=== PATIENT | male | born 1960 | race Caucasian/White ===

== ENCOUNTER 2016-11-19 20:21 | Inpatient (IN) | payer OTHER ==
[2016-11-19 21:02] VITALS: BMI 20.8
--- NOTE | 2016-11-19 21:19 | HP ---
CIWA Score - CIWA Score Nausea/Vomitin-Int. Nausea w/Dry Heave Muscle Tremors: 4-Moderate,w/Arms Extend Anxiety: 6 Agitation: 6 Paroxysmal Sweats: 3 Orientation: 0-Oriented Tacttile Disturbances: 0-None Auditory Disturbances: 2-Mild Harshness/Frighten Visual Disturbances: 2-Mild Sensitivity Headache: 2-Mild CIWA-Ar Total Score: 29 Admission ROS BHS - HPI Chief Complaint: WITHDRAWAL SX'S Allergies/Adverse Reactions: Allergies Allergy/AdvReac Type Severity Reaction Status Date / Time No Known Allergies Allergy Verified 11/19/16 20:58 History of Present Illness: 56 Y.O. MALE WITH ALCOHOLISM HERE FOR DETOX TXMENT. CLIENT IS PRESENTLY INTOXICATED WITH PERIODS OR RAMBLING AND AGITATION. BEHAVIOR EASILY REDIRECTED. HE IS A POOR HISTORIAN 2/2 TO THE INTOXICATION AND AGITATION. CLIENT IS KNOWN TO [facility]. LAST ADMIT 08/2016 Exam Limitations: No Limitations - Ebola screening Have you traveled outside of the country in the last 21 days: No (N) Have you had contact with anyone from an Ebola affected area: No Have you been sick,other than usual withdrawal symptoms: No Do you have a fever: No - Review of Systems Constitutional: Night Sweats EENT: reports: No Symptoms Reported Respiratory: reports: No Symptoms reported Cardiac: reports: No Symptoms Reported GI: reports: Nausea, Poor Appetite : reports: No Symptoms Reported Musculoskeletal: reports: Back Pain, Neck Pain Integumentary: reports: No Symptoms Reported Neuro: reports: No Symptoms reported Endocrine: reports: No Symptoms Reported Hematology: reports: Easy Bruising Psychiatric: reports: Agitated, Anxious, Depressed Other Systems: Reviewed and Negative Patient History - Patient Medical History Hx Asthma: No Hx Chronic Obstructive Pulmonary Disease (COPD): No Hx Cancer: No Hx Cardiac Disorders: No Hx Congestive Heart Failure: No Hx Hypertension: Yes Hx Hypercholesterolemia: Yes Hx Pacemaker: No HX Cerebrovascular Accident: Yes (X 2 IN 08/29 AND ? 10/29 WITH ? BLOOD CLOTS) Hx Seizures: No Hx Diabetes: No Hx Gastrointestinal Disorders: Yes (HAD PANCREATITIS X 1 IN 02/2016) Hx Liver Disease: No Hx Genitourinary Disorders: No Hx Sexually Transmitted Disorders: No Hx Renal Disease (ESRD): No Hx Thyroid Disease: No Hx Human Immunodeficiency Virus (HIV): No Hx Hepatitis C: No Hx Depression: Yes (AND ANXIETY) Hx Suicide Attempt: No Hx Bipolar Disorder: No Hx Schizophrenia: No - Patient Surgical History Past Surgical History: Yes Hx Neurologic Surgery: No Hx Cataract Extraction: No Hx Cardiac Surgery: No Hx Lung Surgery: No Hx Appendectomy: Yes (FOR RUPTURED APPENDIX IN 09/2015) Hx Cholecystectomy: No Hx Genitourinary Surgery: No Hx Section: No Hx Orthopedic Surgery: No Anesthesia Reaction: Yes - PPD History Previous Implant?: Yes Documented Results: Negative w/proof Implanted On Prior [facility] Admission?: Yes Date: 08/31/16 Results: 0MM PPD to be Administered?: No - Smoking Cessation Smoking history: Current every day smoker Have you smoked in the past 12 months: Yes Aproximately how many cigarettes per day: 30 Cigars Per Day: 0 Hx Chewing Tobacco Use: Yes Initiated information on smoking cessation: No 'Breaking Loose' booklet given: 11/19/16 - Substance & Tx. History Hx Alcohol Use: Yes Hx Substance Use: Yes Substance Use Type: Alcohol Hx Substance Use Treatment: Yes ([facility]) - Substances Abused Alcohol Route: Oral Frequency: Daily Amount used: BEER- 1 CASE' oz Age of first use: 14 Date of Last Use: 11/19/16 Family Disease History - Family Disease History Family Disease History: CA: Mother ( FROM MS AND BREAST CANCER), Other: Father (ETOH DEPENDENT AND ) Admission Physical Exam [facility] - Vital Signs Vital Signs: Vital Signs - 24 hr 11/19/16 20:44 Temperature 97.5 F L Pulse Rate 81 Respiratory 18 Rate Blood Pressure 118/79 - Physical General Appearance: Yes: Mild Distress, Intoxicated, Tremorous, Irritable HEENTM: Yes: Normocephalic, JERRI, Pharynx Normal Respiratory: Yes: Chest Non-Tender, Lungs Clear, Normal Breath Sounds, No Respiratory Distress, No Accessory Muscle Use Neck: Yes: No masses,lesions,Nodules, Trachea in good position Breast: Yes: Breast Exam Deferred Cardiology: Yes: Regular Rhythm, Regular Rate, S1, S2 Abdominal: Yes: Normal Bowel Sounds, Non Tender Genitourinary: Yes: Within Normal Limits Back: Yes: Normal Inspection Musculoskeletal: Yes: full range of Motion, Gait Steady, Other (HAS A CANE ALTHOUGH GAIT IS STEADY) Extremities: Yes: Normal Range of Motion, Non-Tender, Tremors Neurological: Yes: Fully Oriented, Alert, Motor Strength 5/5 Integumentary: Yes: Within Normal Limits Lymphatic: Yes: Within Normal Limits - Diagnostic (1) Alcohol dependence with uncomplicated withdrawal Current Visit: No Status: Acute (2) HTN (hypertension) Current Visit: No Status: Chronic Qualifiers: Hypertension type: essential hypertension Qualified Code(s): I10 - Essential (primary) hypertension (3) Hypercholesteremia Current Visit: No Status: Chronic (4) Nicotine dependence Current Visit: No Status: Chronic Qualifiers: Nicotine product type: cigarettes Substance use status: unspecified nicotine-induced disorder Qualified Code(s): F17.219 - Nicotine dependence, cigarettes, with unspecified nicotine-induced disorders Cleared for Admission [facility] - Detox or Rehab [facility] Level of Care: Medically Managed Detox Regimen/Protocol: Librium [facility] Breath Alcohol Content Breath Alcohol Content: 0.221 Urine Drug Screen - Results Drug Screen Negative: Yes
[2016-11-19] MEDS ORDERED: MAG HYDROX/AL HYDROX/SIMETH 30 ML UNIT-DOSE CUP PO PRN (21:25)
[2016-11-19] MEDS ORDERED: MENTHOL/PHENOL 1 EACH UD MM PRN (21:25)
[2016-11-19] MEDS ORDERED: MAGNESIUM CITRATE 300 ML BOTTLE PO PRN (21:25)
[2016-11-19] MEDS ORDERED: NICOTINE POLACRILEX 2 MG GUM BC PRN (21:25)
[2016-11-19] MEDS ORDERED: guaiFENesin/D-METHORPHAN HB 10 ML UNIT-DOSE CUPS PO PRN (21:25)
[2016-11-19] MEDS ORDERED: MAGNESIUM HYDROX 2400MG/30ML ORAL SUSPENSION 30 ML CUP PO PRN (21:25)
[2016-11-19] MEDS ORDERED: P-EPHED 60MG/TRIPROLIDI 2.5MG TABLET PO PRN (21:25)
[2016-11-19] MEDS: chlordiazePOXIDE HCL 25 MG CAPSULE PO SCH (22:26)
[2016-11-19] MEDS: THIAMINE HCL 100 MG TABLET (FP) PO SCH (22:26)
[2016-11-19] MEDS: ATORVASTATIN CA 40 MG TABLET (FP) PO SCH (22:29)
[2016-11-19] MEDS: NICOTINE 21 MG/24 HOURS TOPICAL PATCH TD SCH (22:29)
[2016-11-20] MEDS: chlordiazePOXIDE HCL 25 MG CAPSULE PO SCH ×4 (05:04→22:29)
[2016-11-20] MEDS ORDERED: ASPIRIN 81 MG CHEWABLE TABLETS PO SCH (10:00)
[2016-11-20] MEDS: TAMSULOSIN HCL 0.4 MG CAP.ER.24H (FP) PO SCH (10:21)
[2016-11-20] MEDS: PRENATAL VITAMINS W/ FOLIC ACID TABLET (FP) PO SCH (10:21)
[2016-11-20 10:23] LABS: ALBUMIN 4.2 g/dl (3.4-5.0); ALK PHOS 103 U/L (45-117); ANION GAP 5 (8-16); BILIRUBIN,TOTAL 0.6 mg/dL (0.2-1.0); CALCIUM 9.1 mg/dL (8.5-10.1); CO2 30 mmol/L (21-32); CREATININE 0.6 mg/dL (0.7-1.3); GLUCOSE,RANDOM 80 mg/dL (74-106); SGOT/AST 52 U/L (15-37); SGPT/ALT 59 U/L (12-78); TOT PROT 6.9 g/dl (6.4-8.2)
--- NOTE | 2016-11-20 10:51 | PN ---
S CIWA - CIWA Score Nausea/Vomitin-Mild Nausea/No Vomiting Muscle Tremors: 4-Moderate,w/Arms Extend Anxiety: 3 Agitation: 4-Moderately Restless Paroxysmal Sweats: 3 Orientation: 0-Oriented Tacttile Disturbances: 0-None Auditory Disturbances: 0-None Visual Disturbances: 0-None Headache: 2-Mild CIWA-Ar Total Score: 17 BHS Progress Note (SOAP) Subjective: shakes sweats agitation anxiety body aches irritable Objective: 11/20/16 10:55 Vital Signs Temperature 99.7 F H 11/20/16 10:04 Pulse Rate 102 H 11/20/16 10:04 Respiratory Rate 18 11/20/16 10:04 Blood Pressure 144/75 11/20/16 10:04 O2 Sat by Pulse Oximetry (%) Laboratory Tests 11/20/16 07:00 Sodium 132 L Potassium 4.5 Chloride 97 L Carbon Dioxide 30 Anion Gap 5 L BUN 6 L D Creatinine 0.6 L Creat Clearance w eGFR > 60 Random Glucose 80 D Calcium 9.1 Total Bilirubin 0.6 D AST 52 H D ALT 59 Alkaline Phosphatase 103 D Total Protein 6.9 Albumin 4.2 labs pending awake/alert ambulating no acute distress Assessment: 11/20/16 10:56 withdrawal sx Plan: continue detox increase fluids labs pending
[2016-11-20 11:04] LABS: MCH 34.1 pg (25.7-33.7); MCHC 34.4 g/dl (32.0-35.9); MEAN CELL VOLUME 99.2 fl (80-96); PLATELET COUNT 302 K/MM3 (134-434); RDW 13.8 % (11.9-15.9); WHITE BLOOD COUNT 6.3 K/mm3 (4.0-10.0)
[2016-11-20] MEDS: LOSARTAN 50MG/HCTZ 12.5MG 1 TAB (FP) PO SCH (11:14)
[2016-11-20] MEDS: ASPIRIN PO SCH ×2 (12:17→22:30)
[2016-11-20] MEDS: LOPERAMIDE HCL 2 MG CAPSULE PO PRN ×2 (12:17→18:42)
[2016-11-20] MEDS: DIPYRIDAMOLE PO SCH ×2 (12:17→22:30)
[2016-11-20] MEDS: chlordiazePOXIDE HCL 25 MG CAPSULE PO PRN (12:20)
[2016-11-20] MEDS: hydrOXYzine PAMOATE 50 MG CAPSULE (FP) PO PRN (12:20)
[2016-11-20] MEDS: NICOTINE 21 MG/24 HOURS TOPICAL PATCH TD SCH (12:31)
--- NOTE | 2016-11-20 12:44 | CONSULT ---
[facility] Psychiatric Consult - Data Date of interview: 11/20/16 Admission source: [facility] Identifying data: Readmission to [facility] for this 56 y/o male seeking detox treatment on for alcohol dependence.Patient is , a father of one,currently homeless,unemployed/disabled (recent CVA X 3) and supported on Disability benefits. Substance Abuse History: - Smoking Cessation. Smoking history: Current every day smoker. Have you smoked in the past 12 months: Yes. Aproximately how many cigarettes per day: 30. Cigars Per Day: 0. Hx Chewing Tobacco Use: Yes. Initiated information on smoking cessation: No. 'Breaking Loose' booklet given : 11/19/16. - Substance & Tx. History. Hx Alcohol Use: Yes. Hx Substance Use : Yes. Substance Use Type: Alcohol. Hx Substance Use Treatment: Yes ([facility]). - Substances Abused. Alcohol. Route: Oral. Frequency: Daily. Amount used : BEER- 1 CASE' 24oz. Age of first use: 14. Date of Last Use: 11/19/16. Confirmed by patient. 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 Psychiatric History: No reported history of psychiatric hospitalizations.Used to be under the care of a private psychiatrist,Dr Perales,in [facility] ( November 2015).Was on a regimen of Wellbutrin XL 150 mg/day but,as per own account,he stopped taking the medication.Mr Clancy denies history of suicide attempts.Diagnosed with MDD.Patient agrees to restart zoloft at 25 mg/day. Physical/Sexual Abuse/Trauma History: Patient denies. Additional Comment: Drug Screen is negative. Mental Status Exam - Mental Status Exam Alert and Oriented to: Time, Place, Person Cognitive Function: Good Patient Appearance: Well Groomed Mood: Nervous, Anxious Affect: Mood Congruent Patient Behavior: Fatigued, Appropriate, Cooperative Speech Pattern: Clear, Appropriate Voice Loudness: Normal Thought Process: Goal Oriented Thought Disorder: Not Present Hallucinations: Denies Suicidal Ideation: Denies Homicidal Ideation: Denies Insight/Judgement: Poor Sleep: Fair Appetite: Poor, Weight loss Gait/Station: Other (walks with a cane due to right sided weakness secondary to stoke) Psychiatric Findings - Problem List ([place] 1, 2,3) (1) Alcohol dependence with uncomplicated withdrawal Current Visit: Yes Status: Acute (2) Alcohol-induced mood disorder Current Visit: Yes Status: Acute (3) Nicotine dependence Current Visit: Yes Status: Acute Qualifiers: Nicotine product type: cigarettes Substance use status: unspecified nicotine-induced disorder Qualified Code(s): F17.219 - Nicotine dependence, cigarettes, with unspecified nicotine-induced disorders (4) Depressive disorder Current Visit: Yes Status: Chronic (5) CVA (cerebral vascular accident) Current Visit: No Status: Chronic Qualifiers: CVA mechanism: unspecified Qualified Code(s): I63.9 - Cerebral infarction, unspecified (6) HTN (hypertension) Current Visit: Yes Status: Chronic Qualifiers: Hypertension type: essential hypertension Qualified Code(s): I10 - Essential (primary) hypertension (7) Hypercholesteremia Current Visit: Yes Status: Chronic - Initial Treatment Plan Initial Treatment Plan: Psychoeducation.Detoxification.Zoloft 25 mg po daily.Side effects/benefits discussed with patient.He agrees with plan.Fall precautions.Observation.
[2016-11-20 14:30] LABS: URINE APPEARANCE CLEAR; URINE BILIRUBIN NEGATIVE (NEGATIVE); URINE BLOOD NEGATIVE (NEGATIVE); URINE COLOR LTYELLOW; URINE GLUCOSE (UA) NEGATIVE (NEGATIVE); URINE KETONE NEGATIVE (NEGATIVE); URINE LEUK ESTERASE NEGATIVE (NEGATIVE); URINE NITRITE NEGATIVE (NEGATIVE); URINE PROTEIN NEGATIVE (NEGATIVE); URINE UROBILINOGEN NEGATIVE E.U./dl (0.2-1.0)
[2016-11-20] MEDS: ACETAMINOPHEN 325 MG TABLET (FP) PO PRN (18:42)
[2016-11-20] MEDS ORDERED: ASPIRIN PO SCH (22:00)
[2016-11-20] MEDS ORDERED: DIPYRIDAMOLE PO SCH (22:00)
[2016-11-20] MEDS: THIAMINE HCL 100 MG TABLET (FP) PO SCH (22:29)
[2016-11-20] MEDS: ATORVASTATIN CA 40 MG TABLET (FP) PO SCH (22:29)
[2016-11-20] MEDS: diphenhydrAMINE HCL 50 MG CAPSULE PO PRN (22:30)
[2016-11-20] MEDS: IBUPROFEN 400 MG TABLET (FP) PO PRN (22:33)
[2016-11-21] MEDS: chlordiazePOXIDE HCL 25 MG CAPSULE PO SCH ×3 (05:15→17:38)
[2016-11-21] MEDS: chlordiazePOXIDE HCL 25 MG CAPSULE PO PRN ×2 (09:01→13:00)
[2016-11-21] MEDS: hydrOXYzine PAMOATE 50 MG CAPSULE (FP) PO PRN ×2 (09:01→13:00)
[2016-11-21] MEDS: IBUPROFEN 400 MG TABLET (FP) PO PRN (09:03)
--- NOTE | 2016-11-21 09:32 | PN ---
[facility] CIWA - CIWA Score Nausea/Vomitin Muscle Tremors: 3 Anxiety: 3 Agitation: 2 Paroxysmal Sweats: 1-Minimal Palms Moist Orientation: 0-Oriented Tacttile Disturbances: 1-Very Mild Itch/Numbness Auditory Disturbances: 1-Very Mild Visual Disturbances: 1-Very Mild Sensitivity Headache: 2-Mild CIWA-Ar Total Score: 17 BHS Progress Note (SOAP) Subjective: ALERT,IRRITABLE,ANXIOUS,INTERRUPTED SLEEP,TREMOR Objective: 11/21/16 09:30 Vital Signs Temperature 97.7 F 11/21/16 09:29 Pulse Rate 100 H 11/21/16 09:29 Respiratory Rate 16 11/21/16 09:29 Blood Pressure 124/71 11/21/16 09:29 O2 Sat by Pulse Oximetry (%) 11/21/16 09:30 Laboratory Last Values WBC 6.3 K/mm3 (4.0-10.0) 11/20/16 07:00 RBC 4.23 M/mm3 (4.00-5.60) 11/20/16 07:00 Hgb 14.4 GM/dL (11.7-16.9) 11/20/16 07:00 Hct 42.0 % (35.4-49) 11/20/16 07:00 MCV 99.2 fl (80-96) H 11/20/16 07:00 MCHC 34.4 g/dl (32.0-35.9) 11/20/16 07:00 RDW 13.8 % (11.9-15.9) 11/20/16 07:00 Plt Count 302 K/MM3 (134-434) 11/20/16 07:00 MPV 7.0 fl (7.5-11.1) L 11/20/16 07:00 Sodium 132 mmol/L (136-145) L 11/20/16 07:00 Potassium 4.5 mmol/L (3.5-5.1) 11/20/16 07:00 Chloride 97 mmol/L (98-107) L 11/20/16 07:00 Carbon Dioxide 30 mmol/L (21-32) 11/20/16 07:00 Anion Gap 5 (8-16) L 11/20/16 07:00 BUN 6 mg/dL (7-18) L D 11/20/16 07:00 Creatinine 0.6 mg/dL (0.7-1.3) L 11/20/16 07:00 Creat Clearance w eGFR > 60 (>60) 11/20/16 07:00 Random Glucose 80 mg/dL (74-106) D 11/20/16 07:00 Calcium 9.1 mg/dL (8.5-10.1) 11/20/16 07:00 Total Bilirubin 0.6 mg/dL (0.2-1.0) D 11/20/16 07:00 AST 52 U/L (15-37) H D 11/20/16 07:00 ALT 59 U/L (12-78) 11/20/16 07:00 Alkaline Phosphatase 103 U/L (45-117) D 11/20/16 07:00 Total Protein 6.9 g/dl (6.4-8.2) 11/20/16 07:00 Albumin 4.2 g/dl (3.4-5.0) 11/20/16 07:00 Urine Color Ltyellow 11/20/16 10:15 Urine Appearance Clear 11/20/16 10:15 Urine pH 6.0 (5.0-8.0) 11/20/16 10:15 Ur Specific [place] 1.005 (1.001-1.035) 11/20/16 10:15 Urine Protein Negative (NEGATIVE) 11/20/16 10:15 Urine Glucose (UA) Negative (NEGATIVE) 11/20/16 10:15 Urine Ketones Negative (NEGATIVE) 11/20/16 10:15 Urine Blood Negative (NEGATIVE) 11/20/16 10:15 Urine Nitrite Negative (NEGATIVE) 11/20/16 10:15 Urine Bilirubin Negative (NEGATIVE) 11/20/16 10:15 Urine Urobilinogen Negative E.U./dl (0.2-1.0) 11/20/16 10:15 Ur Leukocyte Esterase Negative (NEGATIVE) 11/20/16 10:15 RPR Titer Nonreactive (NONREACTIVE) 11/20/16 07:00 Assessment: 11/21/16 09:30 WITHDRAWAL SYMPTOM Plan: CONTINUE DETOX,NA IS 132 HYPONATREMIA WILL REPEAT CMP TODAY
[2016-11-21] MEDS: PRENATAL VITAMINS W/ FOLIC ACID TABLET (FP) PO SCH (10:23)
[2016-11-21] MEDS: LOSARTAN 50MG/HCTZ 12.5MG 1 TAB (FP) PO SCH (10:24)
[2016-11-21] MEDS: SERTRALINE HCL 25 MG TABLET (FP) PO SCH (10:24)
[2016-11-21] MEDS: ASPIRIN PO SCH ×2 (10:24→22:40)
[2016-11-21] MEDS: DIPYRIDAMOLE PO SCH ×2 (10:24→22:40)
[2016-11-21] MEDS: TAMSULOSIN HCL 0.4 MG CAP.ER.24H (FP) PO SCH (10:24)
[2016-11-21] MEDS: LOPERAMIDE HCL 2 MG CAPSULE PO PRN (10:27)
[2016-11-21] MEDS: NICOTINE 14 MG/24 HOURS TOPICAL PATCH TD SCH (10:27)
--- NOTE | 2016-11-21 10:36 | EKG ---
Test Reason : Blood Pressure : / mmHG Vent. Rate : 083 BPM Atrial Rate : 083 BPM P-R Int : 146 ms QRS Dur : 094 ms QT Int : 354 ms P-R-T Axes : 074 075 076 degrees QTc Int : 415 ms NORMAL SINUS RHYTHM NORMAL ECG NO PREVIOUS ECGS AVAILABLE Confirmed by CAROLANN NORMAN MD ([id number]) on 11/21/2016 10:35:47 AM Referred By: Confirmed By:CAROLANN NORMAN MD
[2016-11-21 11:00] LABS: ALBUMIN 3.7 g/dl (3.4-5.0); ALK PHOS 122 U/L (45-117); ANION GAP 7 (8-16); BILIRUBIN,TOTAL 0.5 mg/dL (0.2-1.0); CALCIUM 8.8 mg/dL (8.5-10.1); CO2 29 mmol/L (21-32); CREATININE 0.6 mg/dL (0.7-1.3); GLUCOSE,RANDOM 108 mg/dL (74-106); SGOT/AST 28 U/L (15-37); SGPT/ALT 46 U/L (12-78); TOT PROT 6.3 g/dl (6.4-8.2)
[2016-11-21] MEDS: ACETAMINOPHEN 325 MG TABLET (FP) PO PRN (13:00)
[2016-11-21] MEDS: chlordiazePOXIDE 5 MG CAPSULE PO SCH (22:37)
[2016-11-21] MEDS: THIAMINE HCL 100 MG TABLET (FP) PO SCH (22:39)
[2016-11-21] MEDS: ATORVASTATIN CA 40 MG TABLET (FP) PO SCH (22:39)
[2016-11-21] MEDS: diphenhydrAMINE HCL 50 MG CAPSULE PO PRN (22:40)
[2016-11-22] MEDS: IBUPROFEN 400 MG TABLET (FP) PO PRN ×2 (02:52→10:21)
[2016-11-22] MEDS: CYCLOBENZAPRINE HCL 10 MG TABLET (FP) PO PRN ×2 (02:52→10:18)
[2016-11-22] MEDS: chlordiazePOXIDE 5 MG CAPSULE PO SCH ×3 (05:15→17:27)
[2016-11-22] MEDS: SERTRALINE HCL 25 MG TABLET (FP) PO SCH (10:16)
[2016-11-22] MEDS: PRENATAL VITAMINS W/ FOLIC ACID TABLET (FP) PO SCH (10:16)
[2016-11-22] MEDS: LOSARTAN 50MG/HCTZ 12.5MG 1 TAB (FP) PO SCH (10:16)
[2016-11-22] MEDS: ASPIRIN PO SCH ×2 (10:17→22:19)
[2016-11-22] MEDS: DIPYRIDAMOLE PO SCH ×2 (10:17→22:19)
[2016-11-22] MEDS: NICOTINE 14 MG/24 HOURS TOPICAL PATCH TD SCH (10:17)
[2016-11-22] MEDS: TAMSULOSIN HCL 0.4 MG CAP.ER.24H (FP) PO SCH (10:18)
--- NOTE | 2016-11-22 10:19 | PN ---
BHS Progress Note (SOAP) Subjective: ALERT,IRRITABLE,ANXIOUS,INTERRUPTED SLEEP Objective: 11/22/16 10:18 Vital Signs Temperature 96.4 F L 11/22/16 10:07 Pulse Rate 99 H 11/22/16 10:07 Respiratory Rate 20 11/22/16 10:07 Blood Pressure 132/73 11/22/16 10:07 O2 Sat by Pulse Oximetry (%) 11/22/16 10:18 Laboratory Results - last 24 hr 11/21/16 07:30 Sodium 136 Potassium 3.9 Chloride 100 Carbon Dioxide 29 Anion Gap 7 L BUN 10 D Creatinine 0.6 L Creat Clearance w eGFR > 60 Random Glucose 108 H D Calcium 8.8 Total Bilirubin 0.5 AST 28 D ALT 46 D Alkaline Phosphatase 122 H Total Protein 6.3 L Albumin 3.7 Assessment: 11/22/16 10:19 WITHDRAWAL SYMPTOM Plan: CONTINUE DETOX,DISCHARGE IN AM
[2016-11-22] MEDS: hydrOXYzine PAMOATE 50 MG CAPSULE (FP) PO PRN (12:37)
[2016-11-22] MEDS: ACETAMINOPHEN 325 MG TABLET (FP) PO PRN (17:29)
[2016-11-22] MEDS: THIAMINE HCL 100 MG TABLET (FP) PO SCH (22:20)
[2016-11-22] MEDS: diphenhydrAMINE HCL 50 MG CAPSULE PO PRN (22:20)
[2016-11-22] MEDS: ATORVASTATIN CA 40 MG TABLET (FP) PO SCH (22:20)
[2016-11-22] MEDS: chlordiazePOXIDE HCL 10 MG CAPSULE PO SCH (22:20)
[2016-11-23] MEDS: IBUPROFEN 400 MG TABLET (FP) PO PRN (01:05)
[2016-11-23] MEDS: diphenhydrAMINE HCL 50 MG CAPSULE PO PRN (01:05)
[2016-11-23] MEDS: chlordiazePOXIDE HCL 10 MG CAPSULE PO SCH ×2 (05:18→10:23)
--- NOTE | 2016-11-23 09:28 | DS ---
[facility] Detox Discharge Summary Admission Date: 11/19/16 - History Present History: Alcohol Dependence - Physical Exam Results Vital Signs: Vital Signs Temperature 98.6 F 11/23/16 06:00 Pulse Rate 79 11/23/16 06:00 Respiratory Rate 16 11/23/16 06:00 Blood Pressure 115/69 11/23/16 06:00 O2 Sat by Pulse Oximetry (%) - Treatment Hospital Course: Detox Protocol Followed, Detoxed Safely, Responded well, Discharged Condition Good - Medication Discharge Medications: Ambulatory Orders Aspirin [ASA -] 81 mg PO DAILY 08/29/16 Atorvastatin Ca [Lipitor] 40 mg PO HS 08/29/16 Losartan/Hydrochlorothiazide [Losartan-Hctz 50-12.5 mg Tab] 1 each PO DAILY Tamsulosin HCl [Flomax] 0.4 mg PO DAILY 08/29/16 Sertraline HCl [Zoloft -] 25 mg PO DAILY #30 tablet 11/20/16 - Diagnosis (1) Alcohol dependence with uncomplicated withdrawal Current Visit: Yes Status: Chronic (2) Nicotine dependence Current Visit: Yes Status: Chronic Qualifiers: Nicotine product type: cigarettes Substance use status: unspecified nicotine-induced disorder Qualified Code(s): F17.219 - Nicotine dependence, cigarettes, with unspecified nicotine-induced disorders (3) HTN (hypertension) Current Visit: Yes Status: Chronic Qualifiers: Hypertension type: essential hypertension Qualified Code(s): I10 - Essential (primary) hypertension (4) Hypercholesteremia Current Visit: Yes Status: Chronic (5) Anxiety and depression Current Visit: Yes Status: Chronic - AMA Did Patient Leave Against Medical Advice: No
[2016-11-23 10:14] VITALS: BP 114/79; PULSE 107; TEMP 96.6
[2016-11-23] MEDS: LOSARTAN 50MG/HCTZ 12.5MG 1 TAB (FP) PO SCH (10:23)
[2016-11-23] MEDS: SERTRALINE HCL 25 MG TABLET (FP) PO SCH (10:23)
[2016-11-23] MEDS: TAMSULOSIN HCL 0.4 MG CAP.ER.24H (FP) PO SCH (10:23)
[2016-11-23] MEDS: PRENATAL VITAMINS W/ FOLIC ACID TABLET (FP) PO SCH (10:23)
[2016-11-23] MEDS: ASPIRIN PO SCH (10:24)
[2016-11-23] MEDS: DIPYRIDAMOLE PO SCH (10:24)
[2016-11-23] MEDS: NICOTINE 14 MG/24 HOURS TOPICAL PATCH TD SCH ×2 (10:27→11:28)
== END 2016-11-23 14:51 | disposition home or self-care (01) | DRG 775 ==
LOC: YASAS 20:21 → Y6N 21:03
PROVIDERS: ADMIT Internal Medicine; ATTEND Internal Medicine
PROC: HZ2ZZZZ Detoxification Services for Substance Abuse Treatment (ICD-10-PCS; principal; 2016-11-19)
DX: F10.230 Alcohol dependence with withdrawal, uncomplicated (principal); F10.24 Alcohol dependence with alcohol-induced mood disorder; F17.210 Nicotine dependence, cigarettes, uncomplicated; F41.8 Other specified anxiety disorders; I10 Essential (primary) hypertension; E78.00 Pure hypercholesterolemia, unspecified; I69.354 Hemiplegia and hemiparesis following cerebral infarction affecting left non-dominant side; Z87.19 Personal history of other diseases of the digestive system; Z90.89 Acquired absence of other organs
CPT/HCPCS: 36415; 80053; 81003; 85027; 86593; 93005; 93010

== ENCOUNTER 2017-04-01 21:59 | Inpatient (IN) | payer OTHER ==
--- NOTE | 2017-04-01 23:54 | PDOC ---
History of Present Illness - History of Present Illness Initial Comments: 04/02/17 00:10 Patient is a 56 year old male with significant medical hx of alcohol dependency , HTN, HLD, CVA x 2 (08/29, 10/29), and pancreatitis who has been sent to the ED from [facility] detox for intoxication. The patient tried to be admitted for detox at [facility] but he could not be taken because they were full. The patient was unable to be sent home due to intoxication and was sent to the ED. Patients last drink was 2-3 hours ago; he reports drinking 12-15 beers per day for the past month. The patient states he has not eaten in the past week and also endorses some nausea. Denies any seizures, hallucinations, or vomiting. Family Hx: Mother from MS and breast CA. Father from ETOH dependency. Surgical Hx: Appendectomy (ruptured appendix) <Amanda Hidalgo - Last Filed: 04/02/17 00:10> <Jasmine Yanez - Last Filed: 04/02/17 02:39> - General Chief Complaint: Alcohol intoxication Stated Complaint: DETOX Past History <Amanda Hidalgo - Last Filed: 04/02/17 00:10> - Past Medical History Asthma: No Cancer: No Cardiac Disorders: No CVA: Yes (X 2 IN 08/29 AND ? 10/29 WITH ? BLOOD CLOTS) COPD: No CHF: No Diabetes: No GI Disorders: Yes (HAD PANCREATITIS X 1 IN 02/2016) Disorders: No HTN: Yes Hypercholesterolemia: Yes Kidney Stones: No Liver Disease: No Suicide Attempt (Hx): No Seizures: No Thyroid Disease: No - Surgical History Appendectomy: Yes (FOR RUPTURED APPENDIX IN 09/2015) Cardiac Surgery: No Cholecystectomy: No Lung Surgery: No Neurologic Surgery: No Orthopedic Surgery: No - Reproductive History Testicular Surgery: No - Psycho/Social/Smoking Cessation Hx Anxiety: Yes Suicidal Ideation: No Smoking History: Current every day smoker Have you smoked in the past 12 months: No Number of Cigarettes Smoked Daily: 20 Cigars Per Day: 0 Information on smoking cessation initiated: No 'Breaking Loose' booklet given: 11/19/16 Hx Alcohol Use: Yes Drug/Substance Use Hx: No Substance Use Type: Alcohol Hx Substance Use Treatment: Yes ([facility]) <Jasmine Yanez - Last Filed: 04/02/17 02:39> - Past Medical History Allergies/Adverse Reactions: Allergies Allergy/AdvReac Type Severity Reaction Status Date / Time No Known Allergies Allergy Verified 04/01/17 23:20 Home Medications: Ambulatory Orders Losartan 50Mg/Hctz 12.5MG [Hyzaar -] 1 tab PO DAILY #30 tablet 11/23/16 Review of Systems - Review of Systems Comments:: 04/02/17 00:11 GENERAL/CONSTITUTIONAL: Intoxication. No fever or chills. No weakness. HEAD, EYES, EARS, NOSE AND THROAT: No change in vision. No ear pain or discharge. No sore throat. CARDIOVASCULAR: No chest pain or shortness of breath. RESPIRATORY: No cough, wheezing, or hemoptysis. GASTROINTESTINAL: Nausea. No vomiting, diarrhea or constipation. GENITOURINARY: No dysuria, frequency, or change in urination. MUSCULOSKELETAL: No joint or muscle swelling or pain. No neck or back pain. ENDOCRINE: No increased thirst. No abnormal weight change. SKIN: No rash NEUROLOGIC: No headache, vertigo, loss of consciousness, or change in strength/ sensation. <Amanda Hidalgo - Last Filed: 04/02/17 00:10> *Physical Exam - Vital Signs Last Vital Signs Temp Pulse Resp BP Pulse Ox 85 18 125/81 96 04/01/17 22:05 04/01/17 22:05 04/01/17 22:05 04/01/17 22:05 - Physical Exam Comments: 04/02/17 00:12 GENERAL: Awake, alert, and fully oriented, in no acute distress HEAD: No signs of trauma EYES: PERRLA, EOMI, sclera anicteric, injected conjunctiva ENT: Auricles normal inspection, hearing grossly normal, nares patent, oropharynx clear without exudates. Moist mucosa NECK: Normal ROM, supple, no lymphadenopathy, JVD, or masses LUNGS: Breath sounds equal, clear to auscultation bilaterally. No wheezes, and no crackles HEART: Regular rate and rhythm, normal S1 and S2, no murmurs, rubs or gallops ABDOMEN: Soft, nontender, normoactive bowel sounds. No guarding, no rebound. No masses EXTREMITIES: Normal range of motion, no edema. No clubbing or cyanosis. No cords, erythema, or tenderness NEUROLOGICAL: Mildly ataxic. Slurred speech. Cranial nerves II through XII grossly intact. SKIN: Warm, Dry, normal turgor, no rashes or lesions noted. HEMATOLOGIC/LYMPHATIC: No anemia, easy bleeding, or history of blood clots. ALLERGIC/IMMUNOLOGIC: No hives or skin allergy. <Amanda Hidalgo - Last Filed: 04/02/17 00:10> - Vital Signs Last Vital Signs Temp Pulse Resp BP Pulse Ox 85 18 125/81 96 04/01/17 22:05 04/01/17 22:05 04/01/17 22:05 04/01/17 22:05 <Jasmine Yanez - Last Filed: 04/02/17 02:39> ED Treatment Course - LABORATORY CBC & Chemistry Diagram: 04/02/17 01:05 04/02/17 01:05 <Jasmine Yanez - Last Filed: 04/02/17 02:39> Medical Decision Making - Medical Decision Making 04/01/17 23:52 56 yo M with h/o etoh abuse, recently drinking heavily x one month, today last drink was 2 - 3 hours prior to arrival. states drinks beer daily, amarilis went to [facility] detox, they did not have beds, so they sent to ED. pt denies other drug use, has nausea, no vomiting. no other complaints, has not eaten in one week. on exam awake, alert, obviously intoxicated normal cardiac and lung exam. plan r/o liver failure, renal failure, ketoacidosis, dehydration, tox screen. r/ o pancreatitis. ivf, antiemetics. will reassess when sober for possible transfer to detox at [place] in am. <Jasmine Yanez - Last Filed: 04/02/17 02:39> *DC/Admit/Observation/Transfer - Attestations Scribe Attestion: 04/02/17 00:13 Documentation prepared by Amanda Hidalgo, acting as senior medical writer for Jasmine Yanez MD. <Amanda Hidalgo - Last Filed: 04/02/17 00:10> - Discharge Dispostion Admit: Yes <Jasmine Yanez - Last Filed: 04/02/17 02:39> Diagnosis at time of Disposition: Alcohol abuse
[2017-04-01] MEDS ORDERED: ONDANSETRON 4 MG/2 ML VIAL IVPUSH ONE (23:56)
[2017-04-01] MEDS ORDERED: FAMOTIDINE 20 MG/50 ML IVPB 50 ML IVPB ONE (23:56)
[2017-04-01] MEDS ORDERED: SODIUM CHLORIDE 1,000 ML IV STA (23:56)
[2017-04-02] MEDS ORDERED: ONDANSETRON 4 MG/2 ML VIAL ONE (01:08)
[2017-04-02] MEDS ORDERED: FAMOTIDINE 20 MG/50 ML IVPB 50 ML IVPB ONE (01:08)
[2017-04-02 01:19] LABS: BASOPHIL 0.3 % (0-2.0); EOSINOPHIL 0.2 % (0-4.5); MCH 32.2 pg (25.7-33.7); MCHC 34.8 g/dl (32.0-35.9); MEAN CELL VOLUME 92.4 fl (80-96); MEAN PLT VOLUME 6.9 fl (7.5-11.1); NEUTROPHILS 74.5 % (42.8-82.8); PLATELET COUNT 374 K/MM3 (134-434); RDW 13.5 % (11.9-15.9)
[2017-04-02 01:43] LABS: ALBUMIN 4.5 g/dl (3.4-5.0); ALK PHOS 105 U/L (45-117); ANION GAP 15 (8-16); BILIRUBIN,TOTAL 0.6 mg/dL (0.2-1.0); CALCIUM 8.9 mg/dL (8.5-10.1); CO2 25 mmol/L (21-32); CREATININE 0.6 mg/dL (0.7-1.3); GLUCOSE,RANDOM 92 mg/dL (74-106); SGOT/AST 25 U/L (15-37); SGPT/ALT 26 U/L (12-78); TOT PROT 7.8 g/dl (6.4-8.2)
[2017-04-02 02:12] LABS: ACETONE SERUM NEGATIVE (NEGATIVE)
--- NOTE | 2017-04-02 03:26 | HP ---
CHIEF COMPLAINT: Alcohol Detox PCP: HISTORY OF PRESENT ILLNESS: This is a 56 y/o male with a PMHx of: HTN, HLD, CVA x2 (08/29, 10/29) Pancreatitis. Who presents to the ED from [facility] detox for intoxication. The patient tried to be admitted for detox at [facility] but he could not be taken because they were full. The patient was unable to be sent home due to intoxication and was sent to the ED. Patients last drink was 2-3 hours ago; he reports drinking 12-15 beers per day for the past month. The patient states he has not eaten in the past week and also endorses some nausea. Denies any seizures, hallucinations, or vomiting. ER course was notable for: (1) Na 124 (2) ETOH 100 (3) Recent Travel: None PAST MEDICAL HISTORY: See HPI PAST SURGICAL HISTORY: Denies Social History: Smoking: Current Alcohol: Alcohol Abuse- 12-15 beers daily Drugs: Denies Lives alone Family History: Non-Contributory Allergies No Known Allergies Allergy (Verified 04/01/17 23:20) HOME MEDICATIONS: Home Medications Medication Instructions Recorded Losartan 50Mg/Hctz 12.5MG [Hyzaar 1 tab PO DAILY #30 tablet 11/23/16 -] REVIEW OF SYSTEMS CONSTITUTIONAL: Absent: fever, chills, diaphoresis, generalized weakness, malaise, loss of appetite, weight change HEENT: Absent: rhinorrhea, nasal congestion, throat pain, throat swelling, difficulty swallowing, mouth swelling, ear pain, eye pain, visual changes CARDIOVASCULAR: Absent: chest pain, syncope, palpitations, irregular heart rate, lightheadedness , peripheral edema RESPIRATORY: Absent: cough, shortness of breath, dyspnea with exertion, orthopnea, wheezing, stridor, hemoptysis GASTROINTESTINAL: Absent: abdominal pain, abdominal distension, nausea, vomiting, diarrhea, constipation, melena, hematochezia GENITOURINARY: Absent: dysuria, frequency, urgency, hesitancy, hematuria, flank pain, genital pain MUSCULOSKELETAL: Absent: myalgia, arthralgia, joint swelling, back pain, neck pain SKIN: Absent: rash, itching, pallor HEMATOLOGIC/IMMUNOLOGIC: Absent: easy bleeding, easy bruising, lymphadenopathy, frequent infections ENDOCRINE: Absent: unexplained weight gain, unexplained weight loss, heat intolerance, cold intolerance NEUROLOGIC: tremors Absent: headache, focal weakness or paresthesias, dizziness, unsteady gait, seizure, mental status changes, bladder or bowel incontinence PSYCHIATRIC: Absent: anxiety, depression, suicidal or homicidal ideation, hallucinations. PHYSICAL EXAMINATION GENERAL: Awake, alert, and fully oriented, in no acute distress. HEAD: Normal with no signs of trauma. EYES: Pupils equal, round and reactive to light, extraocular movements intact, sclera anicteric, conjunctiva clear. No lid lag. EARS, NOSE, THROAT: Ears normal, nares patent, oropharynx clear without exudates. Moist mucous membranes. NECK: Normal range of motion, supple without lymphadenopathy, JVD, or masses. LUNGS: Breath sounds equal, clear to auscultation bilaterally. No wheezes, and no crackles. No accessory muscle use. HEART: Regular rate and rhythm, normal S1 and S2 without murmur, rub or gallop. ABDOMEN: Soft, nontender, not distended, normoactive bowel sounds, no guarding, no rebound, no masses. No hepatomegaly or splenomegaly. MUSCULOSKELETAL: Normal range of motion at all joints. No bony deformities or tenderness. No CVA tenderness. UPPER EXTREMITIES: 2+ pulses, warm, well-perfused. No cyanosis. No clubbing. No peripheral edema. LOWER EXTREMITIES: 2+ pulses, warm, well-perfused. No calf tenderness. No peripheral edema. NEUROLOGICAL: Mild tremors to upper extremities. Cranial nerves II-XII intact. Normal speech. Normal gait. PSYCHIATRIC: Cooperative. Good eye contact. Appropriate mood and affect. SKIN: Warm, dry, normal turgor, no rashes or lesions noted, normal capillary refill. ASSESSMENT/PLAN: This is a 56 y/o male with a PMH of: HTN, HLD, CVA x2 (08/29, 10/29), Pancreatitis. Admitted for Hyponatremia, Alcohol Detox for further evaluation of their emergent condition. Plan: 1. Severe Hyponatremia - Likely secondary to Alcohol Abuse vs Dehydration - NS bolus given in ED - BMP Q4H - Goal sodium correction 6-8 meq/24hrs - Seizure Precautions - Monitor vitals 2. Alcohol Abuse - Alcohol Detox - CIWA Score 8 - Will start Librium Protocol - Appreciate Detox Consult - Monitor for DTs - Seizure Precautions - Monitor Vitals - Consider Ativan prn- agitation - Patient counseled on Alcohol Cessation, he is agreeable at this point 3. Hypertension - Monitor BP - Continue home meds - Monitor renal function 4. HLD - Continue Lipitor - Monitor LFTs 5. CVA - hx CVA x2 no residual deficits noted - Continue to monitor and treat with interventions accordingly 6. FEN - Patient tolerates PO fluids - Replete lytes prn - Low Na Diet 7. DVT Prophylaxis - OOB - SCDs - Heparin SQ Problem List - Problem (1) Alcohol abuse Code(s): F10.10 - ALCOHOL ABUSE, UNCOMPLICATED (2) Alcohol dependence with uncomplicated withdrawal Code(s): F10.230 - ALCOHOL DEPENDENCE WITH WITHDRAWAL, UNCOMPLICATED (3) Anxiety and depression Code(s): F41.9 - ANXIETY DISORDER, UNSPECIFIED F32.9 - MAJOR DEPRESSIVE DISORDER, SINGLE EPISODE, UNSPECIFIED (4) Depressive disorder Code(s): F32.9 - MAJOR DEPRESSIVE DISORDER, SINGLE EPISODE, UNSPECIFIED (5) HTN (hypertension) Code(s): I10 - ESSENTIAL (PRIMARY) HYPERTENSION Qualifiers: (6) Nicotine dependence Code(s): F17.200 - NICOTINE DEPENDENCE, UNSPECIFIED, UNCOMPLICATED Qualifiers : (7) Hyponatremia Code(s): E87.1 - HYPO-OSMOLALITY AND HYPONATREMIA Visit type - Emergency Visit Emergency Visit: Yes ED Registration Date: 04/02/17 Care time: The patient presented to the Emergency Department on the above date and was hospitalized for further evaluation of their emergent condition. - New Patient This patient is new to me today: Yes Date on this admission: 04/02/17 - Critical Care Critical Care patient: No
[2017-04-02] MEDS ORDERED: chlordiazePOXIDE HCL 25 MG CAPSULE PO ONE (03:51)
[2017-04-02] MEDS ORDERED: chlordiazePOXIDE HCL 25 MG CAPSULE PO PRN (03:51)
[2017-04-02] MEDS: chlordiazePOXIDE HCL 25 MG CAPSULE PO SCH ×4 (05:01→22:25)
[2017-04-02 06:21] VITALS: BMI 20.2
[2017-04-02] MEDS ORDERED: LORAZEPAM CARPU-JECT 2 MG/ML DISP.SYRIN IVPUSH PRN ×2 (08:39→15:24)
[2017-04-02] MEDS ORDERED: SODIUM CHLORIDE 1,000 ML IV SCH (08:45)
[2017-04-02] MEDS: MULTIVITAMINS (DAILY MVI) TABLET (FP) PO SCH (10:02)
[2017-04-02] MEDS: FOLIC ACID 1 MG TABLET (FP) PO SCH (10:02)
[2017-04-02] MEDS: NICOTINE 21 MG/24 HOURS TOPICAL PATCH TD SCH (10:03)
[2017-04-02 10:40] LABS: BASOPHIL 0.3 % (0-2.0); EOSINOPHIL 0.3 % (0-4.5); MCH 32.6 pg (25.7-33.7); MCHC 34.9 g/dl (32.0-35.9); MEAN CELL VOLUME 93.4 fl (80-96); MEAN PLT VOLUME 6.9 fl (7.5-11.1); NEUTROPHILS 68.8 % (42.8-82.8); PLATELET COUNT 344 K/MM3 (134-434); RDW 13.4 % (11.9-15.9); WHITE BLOOD COUNT 9.8 K/mm3 (4.0-10.0)
[2017-04-02 11:08] LABS: CALCIUM 8.9 mg/dL (8.5-10.1); COCKROFT - GAULT 116.48; CREATININE 0.6 mg/dL (0.7-1.3); MAGNESIUM 2.3 mg/dL (1.8-2.4); PHOSPHOROUS 2.6 mg/dL (2.5-4.9)
--- NOTE | 2017-04-02 13:13 | CONSULT ---
Consult Detox [facility] Reason for Current Admission/Consult: Alcohol withdrawal sx. Referred by:: Aura Uriarte NP - History History of Present Illness: 56 y/o man with a long hx. of alcoholism was sent to ED from [facility] admissions because we were full in detox. SAMUEL at [facility] was .143 & BAL at ED 106.1 - History Source History Provided By: Patient, Medical Record Limitations to Obtaining History: No Limitations - Alcohol/Substance Use Hx Alcohol Use: Yes - Current Drug/Alcohol Use Alcohol Route: Oral Frequency: Daily Amount used: 2-4(6packs) Age of first use: 14 Date of Last Use: 04/01/17 - Significant Medical Findings: Laboratory Tests 04/02/17 04/02/17 04/02/17 01:05 01:05 01:05 WBC 13.0 H D RBC 4.72 Hgb 15.2 Hct 43.6 MCV 92.4 MCHC 34.8 RDW 13.5 Plt Count 374 D MPV 6.9 L Neutrophils % 74.5 Lymphocytes % 17.5 Monocytes % 7.5 Eosinophils % 0.2 Basophils % 0.3 Sodium 124 L* Potassium 3.7 Chloride 84 L D Carbon Dioxide 25 Anion Gap 15 BUN 4 L D Creatinine 0.6 L Creat Clearance w eGFR > 60 Random Glucose 92 Calcium 8.9 Phosphorus Magnesium Total Bilirubin 0.6 AST 25 ALT 26 D Alkaline Phosphatase 105 Total Protein 7.8 D Albumin 4.5 D Lipase Alcohol, Quantitative 106.1 H* Acetone, Qual Negative 04/02/17 04/02/17 04/02/17 01:05 09:57 09:57 WBC 9.8 RBC 4.63 Hgb 15.1 Hct 43.2 MCV 93.4 MCHC 34.9 RDW 13.4 Plt Count 344 MPV 6.9 L Neutrophils % 68.8 Lymphocytes % 18.1 Monocytes % 12.5 H Eosinophils % 0.3 Basophils % 0.3 Sodium 131 L Potassium 4.1 Chloride 94 L D Carbon Dioxide 28 Anion Gap 9 BUN 9 D Creatinine 0.6 L Creat Clearance w eGFR Random Glucose 109 H Calcium 8.9 Phosphorus 2.6 Magnesium 2.3 Total Bilirubin AST ALT Alkaline Phosphatase Total Protein Albumin Lipase 122 Alcohol, Quantitative Acetone, Qual CIWA Score - CIWA Score Nausea/Vomitin-No Nausea/No Vomiting Muscle Tremors: 4-Moderate,w/Arms Extend Anxiety: 4-Mod. Anxious/Guarded Agitation: 4-Moderately Restless Paroxysmal Sweats: 3 Orientation: 0-Oriented Tacttile Disturbances: 0-None Auditory Disturbances: 0-None Visual Disturbances: 0-None Headache: 0-None Present CIWA-Ar Total Score: 15 Assessment Plan - Diagnosis (1) Alcohol dependence with uncomplicated withdrawal Status: Chronic - Medication Detox Regimen/Protocol: Марина
--- NOTE | 2017-04-02 14:10 | PN ---
Physical Exam: SUBJECTIVE: Patient seen and examined. He denies any chest pain, discomfort. Reports mild anxiety, but denies hallucinations. He feels like the Librium taper is helping. OBJECTIVE: Mildly anxious, will order Ativan as needed CIWA score 3, mildly anxious, mild upper ext. tremors Patient requesting a psych consult for anxiety and etoh abuse Vital Signs Period Temp Pulse Resp BP Sys/Phelps Pulse Ox Last 24 Hr 98.1 F-98.3 F 83-91 18-20 123-131/73-87 94-96 GENERAL: Awake, alert, and fully oriented, in no acute distress. HEAD: Normal with no signs of trauma. EYES: Pupils equal, round and reactive to light, extraocular movements intact, sclera anicteric, conjunctiva clear. No lid lag. EARS, NOSE, THROAT: Ears normal, nares patent, oropharynx clear without exudates. Moist mucous membranes. NECK: Normal range of motion, supple without lymphadenopathy, JVD, or masses. LUNGS: Breath sounds equal, clear to auscultation bilaterally. No wheezes, and no crackles. No accessory muscle use. HEART: Regular rate and rhythm, normal S1 and S2 without murmur, rub or gallop. ABDOMEN: Soft, nontender, not distended, normoactive bowel sounds, no guarding, no rebound, no masses. No hepatomegaly or splenomegaly. MUSCULOSKELETAL: Normal range of motion at all joints. No bony deformities or tenderness. No CVA tenderness. UPPER EXTREMITIES: 2+ pulses, warm, well-perfused. No cyanosis. No clubbing. No peripheral edema. LOWER EXTREMITIES: 2+ pulses, warm, well-perfused. No calf tenderness. No peripheral edema. NEUROLOGICAL: Mild tremors to upper extremities. Mild anxiety. PSYCHIATRIC: Cooperative. Good eye contact. Appropriate mood and affect. SKIN: Warm, dry, normal turgor, no rashes or lesions noted, normal capillary refill. Laboratory Results - last 24 hr 04/02/17 04/02/17 09:57 09:57 WBC 9.8 RBC 4.63 Hgb 15.1 Hct 43.2 MCV 93.4 MCHC 34.9 RDW 13.4 Plt Count 344 MPV 6.9 L Neutrophils % 68.8 Lymphocytes % 18.1 Monocytes % 12.5 H Eosinophils % 0.3 Basophils % 0.3 Sodium 131 L Potassium 4.1 Chloride 94 L D Carbon Dioxide 28 Anion Gap 9 BUN 9 D Creatinine 0.6 L Random Glucose 109 H Calcium 8.9 Phosphorus 2.6 Magnesium 2.3 Active Medications Generic Name Dose Route Start Last Admin Trade Name Freq PRN Reason Stop Dose Admin Chlordiazepoxide HCl 25 mg 04/02/17 03:51 Librium - PO 04/05/17 03:50 Q4H PRN WITHDRAWAL(CONT SUBST) Chlordiazepoxide HCl 50 mg 04/02/17 05:00 04/02/17 10:02 Librium - PO 04/02/17 23:01 50 mg [id number] ZORAIDA Administration Chlordiazepoxide HCl 25 mg 04/03/17 05:00 Librium - PO 04/03/17 23:01 [id number] ZORAIDA Chlordiazepoxide HCl 15 mg 04/04/17 05:00 Librium - PO 04/04/17 23:01 [id number] ZORAIDA Chlordiazepoxide HCl 10 mg 04/05/17 05:00 Librium - PO 04/05/17 23:01 [id number] ZORAIDA Dipyridamole/Aspirin 1 combo 04/02/17 14:15 Aggrenox - PO BID ZORAIDA Folic Acid 1 mg 04/02/17 10:00 04/02/17 10:02 Folic Acid - PO 1 mg DAILY ZORAIDA Administration Sodium Chloride 1,000 mls @ 75 mls/hr 04/02/17 08:45 04/02/17 10:02 Normal Saline - IV 75 mls/hr ASDIR ZORAIDA Administration Lorazepam 1 mg 04/02/17 08:39 Ativan Injection - IVPUSH Q6H PRN seizure Multivitamins/Minerals/Vitamin C 1 tab 04/02/17 10:00 04/02/17 10:02 Tab-A-Vit - PO 1 tab DAILY ZORAIDA Administration Nicotine 21 mg 04/02/17 10:00 04/02/17 10:03 Nicoderm Patch - TD 21 mg DAILY ZORAIDA Administration ASSESSMENT/PLAN: Patient is a 56 year old male with a past medical history of hypertension, hyperlipidemia, CVA x 2 (08/29, 10/29), ETOH abuse and pancreatitis. He presented to the ED from [facility] detox for intoxication. The patient tried to be admitted for detox at [facility] but he could not be taken because they were full but was not able to be sent home because he was intoxicated. He was sent to the ED for further evaluation. Patient reports drinking 12-15 beers per day for the past month. He denies seizures, hallucinations or vomiting. On admission his sodium levels was 124, ETOH level >100. I called patient's pharmacy @ [facility] to reconcile patient's medications: Aggrenox BID, Lipitor 40mg @ hs, B12 100mg daily, Losartan 50mg/Hctz 12.5, Folic acid daily, Vitamin B1 100mg daily, Gabapentin 300mg BID Psych: Acute alcohol intoxication/abuse Assessment/Plan: Patient planning on alcohol detox CIWA lower now, responding well to Librium taper Will add Ativan PRN Monitor for DT Dr Teo Swann consulted Severe Hyponatremia - acute Assessment/Plan: Likely secondary to ETOH Received IVF fluid bolus on admission, now on maintenance fluids of NS @75/cchr NA 124>131 will repeat BMP Seizure precautions Cardiology: Hypertension: Monitor BP will continue home medications Hyperlipidemia: Assessment/Plan: Patient refusing Lipitor will hold for now Neuro: CVA - uses a cane for support of left side Assessment/Plan: with no other residual deficits noted on exam patient states he went to [facility] after CVA Will order PT while hospitalized On Aggrenox BID F.E.N. Fluids: NS @ 75cc/hr Electrolytes: monitor BMP, hyponatremia improving Nutrition: regular diet Prophylaxis: DVT: SCDs, on Aggrenox GI: Protonix Disposition: Requires inpatient hospitalization. Full code. Visit type - Emergency Visit Emergency Visit: Yes ED Registration Date: 04/02/17 Care time: The patient presented to the Emergency Department on the above date and was hospitalized for further evaluation of their emergent condition. - New Patient This patient is new to me today: Yes Date on this admission: 04/02/17 - Critical Care Critical Care patient: No - Discharge Referral Referred to [facility] Med [facility].C.: No
[2017-04-02] MEDS: ASPIRIN/DIPYRIDAMOLE 25 MG/200 MG CAPSULE (FP) PO SCH ×2 (14:55→22:25)
--- NOTE | 2017-04-02 16:15 | EKG ---
Test Reason : Blood Pressure : / mmHG Vent. Rate : 085 BPM Atrial Rate : 085 BPM P-R Int : 144 ms QRS Dur : 102 ms QT Int : 354 ms P-R-T Axes : 071 071 066 degrees QTc Int : 421 ms NORMAL SINUS RHYTHM NORMAL ECG WHEN COMPARED WITH ECG OF 19-NOV-2016 22:02, NO SIGNIFICANT CHANGE WAS FOUND Confirmed by DANIELITO DREW MD ([id number]) on 04/02/2017 4:14:48 PM Referred By: Confirmed By:DANIELITO DREW MD
[2017-04-02 20:10] LABS: ALBUMIN 3.8 g/dl (3.4-5.0); ALK PHOS 127 U/L (45-117); ANION GAP 9 (8-16); BILIRUBIN,TOTAL 0.4 mg/dL (0.2-1.0); CALCIUM 8.9 mg/dL (8.5-10.1); CO2 28 mmol/L (21-32); COCKROFT - GAULT 99.84; CREATININE 0.7 mg/dL (0.7-1.3); GLUCOSE,RANDOM 137 mg/dL (74-106); SGOT/AST 15 U/L (15-37); SGPT/ALT 24 U/L (12-78); TOT PROT 6.6 g/dl (6.4-8.2)
[2017-04-02] MEDS: DEXTROSE 5%-WATER - 1,000 ML IV SCH (21:24)
--- NOTE | 2017-04-02 22:19 | HOSP ---
Subjective - Review of Symptoms Events since last encounter: Late entry for 845PM Physical Examination Vital Signs: Vital Signs Temperature 98.4 F 04/02/17 22:05 Pulse Rate 95 H 04/02/17 22:05 Respiratory Rate 20 04/02/17 22:05 Blood Pressure 117/77 04/02/17 22:05 O2 Sat by Pulse Oximetry (%) 96 04/02/17 09:00 Labs: CBC, BMP 04/02/17 09:57 04/02/17 18:50 Hospitalist Encounter Assessment: Hyponatremia - Sodium 136. further increase. DW renal, Dr. Caballero who recommended dc NS , start D5W @ 100cc/hr and repeat BMP at midnight. - orders placed for same and discussed with nurse David. - also recommend DC hyzaar and give cozaar. same ordered.
[2017-04-02] MEDS: GABAPENTIN 300 MG CAPSULE (FP) PO SCH (22:24)
--- NOTE | 2017-04-02 22:27 | PN ---
Mental Health Exam - Mental Status Exam Alert and Oriented to: Time, Place, Person Cognitive Function: Grossly Intact Patient Appearance: Well Groomed (emaciated in bed. ) Mood: Expansive, Hopeful Affect: Appropriate, Mood Congruent Patient Behavior: Passive, Impulsive ([place] to stop alchol urges. ), Cooperative Speech Pattern: Clear Voice Loudness: Mildly Loud Thought Process: Intact Thought Disorder: Not Present Hallucinations: None Suicidal Ideation: None Homicidal Ideation: None Insight/Judgement: Poor (makes impulsive choice in substance use. ) Sleep: Fair Appetite: Fair (improving ate all dinner and boost too. )
--- NOTE | 2017-04-02 22:36 | PN ---
Progress Note, Physician Chief Complaint: "i used to take neurontin," :"its my mood swings daily", "when i drink in the morning that it for the day" - Current Medication List Current Medications: Active Medications Chlordiazepoxide HCl (Librium -) 25 mg PO Q4H PRN PRN Reason: WITHDRAWAL(CONT SUBST) Stop: 04/05/17 03:50 Chlordiazepoxide HCl (Librium -) 50 mg PO [id number] [facility] Stop: 04/02/17 23:01 Last Admin: 04/02/17 22:25 Dose: 50 mg Chlordiazepoxide HCl (Librium -) 25 mg PO [id number] [facility] Stop: 04/03/17 23:01 Chlordiazepoxide HCl (Librium -) 15 mg PO Q2G-STV [facility] Stop: 04/04/17 23:01 Chlordiazepoxide HCl (Librium -) 10 mg PO [id number] [facility] Stop: 04/05/17 23:01 Cyanocobalamin (Vitamin B12 -) 100 mcg PO DAILY [facility] Dipyridamole/Aspirin (Aggrenox -) 1 combo PO BID [facility] Last Admin: 04/02/17 22:25 Dose: 1 combo Folic Acid (Folic Acid -) 1 mg PO DAILY [facility] Last Admin: 04/02/17 10:02 Dose: 1 mg Gabapentin (Neurontin -) 300 mg PO BID [facility] Last Admin: 04/02/17 22:24 Dose: 300 mg Dextrose (D5w -) 1,000 mls @ 100 mls/hr IV ASDIR [facility] Last Admin: 04/02/17 21:24 Dose: 100 mls/hr Losartan Potassium (Cozaar -) 50 mg PO DAILY [facility] Multivitamins/Minerals/Vitamin C (Tab-A-Vit -) 1 tab PO DAILY [facility] Last Admin: 04/02/17 10:02 Dose: 1 tab Nicotine (Nicoderm Patch -) 21 mg TD DAILY [facility] Last Admin: 04/02/17 10:03 Dose: 21 mg - Objective Vital Signs: Vital Signs Temperature 98.4 F 04/02/17 22:05 Pulse Rate 95 H 04/02/17 22:05 Respiratory Rate 20 04/02/17 22:05 Blood Pressure 117/77 04/02/17 22:05 O2 Sat by Pulse Oximetry (%) 96 04/02/17 09:00 Labs: CBC, BMP 04/02/17 09:57 04/02/17 18:50 Problem List - Problems (1) Alcohol dependence with uncomplicated withdrawal Assessment/Plan: on librium taper Code(s): F10.230 - ALCOHOL DEPENDENCE WITH WITHDRAWAL, UNCOMPLICATED (2) Anxiety and depression Assessment/Plan: plan to see psych at [facility], not adherent with past rx for gabapentin or abilify. Code(s): F41.9 - ANXIETY DISORDER, UNSPECIFIED F32.9 - MAJOR DEPRESSIVE DISORDER, SINGLE EPISODE, UNSPECIFIED Assessment/Plan 56 yo white male disabled shabnam, who has sever substance use history of alcoholism, pack a day smoker for 40 years, history of Cocaine use. Attempted rehab at [facility], [facility], and other rehabs but relapsed after a few weeks after having an alcholic beverage. Stroke #2 in 2015 seen a psych in [place] for few months but stopped attending there. Staed thing are going down hil also when he lsot his rental home in [place] to a short sale by [employer]. Client is estranged from mother of daughter. He keeps a relationship with his 13 yo daughter and maintains balance when with her.
[2017-04-03 02:43] LABS: CALCIUM 8.6 mg/dL (8.5-10.1); COCKROFT - GAULT 99.84; CREATININE 0.7 mg/dL (0.7-1.3)
[2017-04-03] MEDS: chlordiazePOXIDE HCL 25 MG CAPSULE PO SCH ×4 (06:22→22:42)
[2017-04-03] MEDS ORDERED: LOSARTAN 50MG/HCTZ 12.5MG 1 TAB (FP) PO SCH (10:00)
[2017-04-03] MEDS: MULTIVITAMINS (DAILY MVI) TABLET (FP) PO SCH (10:01)
[2017-04-03] MEDS: GABAPENTIN 300 MG CAPSULE (FP) PO SCH ×2 (10:01→22:41)
[2017-04-03] MEDS: LOSARTAN POTASSIUM 50 MG TABLET (FP) PO SCH (10:01)
[2017-04-03] MEDS: CYANOCOBALAMIN (VITAMIN B-12) 100 MCG TABLET PO SCH (10:01)
[2017-04-03] MEDS: FOLIC ACID 1 MG TABLET (FP) PO SCH (10:01)
[2017-04-03] MEDS: ASPIRIN/DIPYRIDAMOLE 25 MG/200 MG CAPSULE (FP) PO SCH ×2 (10:01→22:42)
[2017-04-03] MEDS: NICOTINE 21 MG/24 HOURS TOPICAL PATCH TD SCH (10:01)
[2017-04-03] MEDS: DEXTROSE 5%-WATER - 1,000 ML IV SCH (10:02)
--- NOTE | 2017-04-03 12:02 | PN ---
Physical Exam: SUBJECTIVE: Patient seen and examined at the bedside. He is sitting up, eating his lunch. States he feels very anxious, wants to drink alcohol. Denies any tremors, visual or auditory hallucinations. OBJECTIVE: Appears anxious on exam, no tremors noted. He is able to feed himself without difficulty Will order one time ativan 1mg PO x 1 and monitor anxiety level Seen by psychiatrist, notes reviewed. CIWA levels: 5 (mod. anxiety and restlessness) Vital Signs Period Temp Pulse Resp BP Sys/Phelps Pulse Ox Last 24 Hr 98.0 F-98.9 F 83-101 16-20 116-136/70-77 96 GENERAL: Awake, alert, and fully oriented, anxious HEAD: Normal with no signs of trauma. EYES: Pupils equal, round and reactive to light, extraocular movements intact, sclera anicteric, conjunctiva clear. No lid lag. EARS, NOSE, THROAT: Ears normal, nares patent, oropharynx clear without exudates. Moist mucous membranes. NECK: Normal range of motion, supple without lymphadenopathy, JVD, or masses. ABDOMEN: Soft, nontender, not distended, normoactive bowel sounds, no guarding, no rebound, no masses. No hepatomegaly or splenomegaly. MUSCULOSKELETAL: Normal range of motion at all joints. No bony deformities or tenderness. No CVA tenderness. UPPER EXTREMITIES: 2+ pulses, warm, well-perfused. No cyanosis. No clubbing. No peripheral edema. LOWER EXTREMITIES: 2+ pulses, warm, well-perfused. No calf tenderness. No peripheral edema. NEUROLOGICAL: No tremors to upper extremities. Moderate anxiety. PSYCHIATRIC: Cooperative. Good eye contact. Appropriate mood and affect. SKIN: Warm, dry, normal turgor, no rashes or lesions noted, normal capillary refill. Laboratory Results - last 24 hr 04/02/17 04/03/17 18:50 02:10 Sodium 136 135 L Potassium 3.7 3.9 Chloride 99 102 Carbon Dioxide 28 26 Anion Gap 9 7 L BUN 11 D 13 Creatinine 0.7 0.7 Creat Clearance w eGFR > 60 Random Glucose 137 H D 161 H Calcium 8.9 8.6 Total Bilirubin 0.4 D AST 15 D ALT 24 Alkaline Phosphatase 127 H D Total Protein 6.6 Albumin 3.8 Active Medications Generic Name Dose Route Start Last Admin Trade Name Freq PRN Reason Stop Dose Admin Chlordiazepoxide HCl 25 mg 04/02/17 03:51 Librium - PO 04/05/17 03:50 Q4H PRN WITHDRAWAL(CONT SUBST) Chlordiazepoxide HCl 25 mg 04/03/17 05:00 04/03/17 11:26 Librium - PO 04/03/17 23:01 25 mg [id number] ZORAIDA Administration Chlordiazepoxide HCl 15 mg 04/04/17 05:00 Librium - PO 04/04/17 23:01 [id number] ZORAIDA Chlordiazepoxide HCl 10 mg 04/05/17 05:00 Librium - PO 04/05/17 23:01 [id number] ZORAIDA Cyanocobalamin 100 mcg 04/03/17 10:00 04/03/17 10:01 Vitamin B12 - PO 100 mcg DAILY ZORAIDA Administration Dipyridamole/Aspirin 1 combo 04/02/17 14:15 04/03/17 10:01 Aggrenox - PO 1 combo BID ZORAIDA Administration Folic Acid 1 mg 04/02/17 10:00 04/03/17 10:01 Folic Acid - PO 1 mg DAILY ZORAIDA Administration Gabapentin 300 mg 04/02/17 22:00 04/03/17 10:01 Neurontin - PO 300 mg BID ZORAIDA Administration Dextrose 1,000 mls @ 100 mls/hr 04/02/17 20:45 04/03/17 10:02 D5w - IV 100 mls/hr ASDIR ZORAIDA Administration Losartan Potassium 50 mg 04/03/17 10:00 04/03/17 10:01 Cozaar - PO 50 mg DAILY ZORAIDA Administration Multivitamins/Minerals/Vitamin C 1 tab 04/02/17 10:00 04/03/17 10:01 Tab-A-Vit - PO 1 tab DAILY ZORAIDA Administration Nicotine 21 mg 04/02/17 10:00 04/03/17 10:01 Nicoderm Patch - TD 21 mg DAILY ZORAIDA Administration ASSESSMENT/PLAN: Patient is a 56 year old male with a past medical history of hypertension, hyperlipidemia, CVA x 2 (08/29, 10/29), ETOH abuse and pancreatitis. He presented to the ED from [facility] detox for intoxication. The patient tried to be admitted for detox at [facility] but he could not be taken because they were full but was not able to be sent home because he was intoxicated. He was sent to the ED for further evaluation. Patient reports drinking 12-15 beers per day for the past month. He denies seizures, hallucinations or vomiting. On admission his sodium levels was 124, ETOH level >100. I called patient's pharmacy @ [facility] to reconcile patient's medications: Aggrenox BID, Lipitor 40mg @ hs, B12 100mg daily, Losartan 50mg/Hctz 12.5, Folic acid daily, Vitamin B1 100mg daily, Gabapentin 300mg BID Neuro/Psych: Acute alcohol intoxication/abuse Assessment/Plan: Patient planning on alcohol detox CIWA 5, moderate anxiety today and very restless Ativan 1mg PO x 1, will need to be given the PRN Librium if anxiety continues Dr Teo Swann consulted and following Psych following Seizure precautions Renal: Severe Hyponatremia Assessment/Plan: Likely secondary to ETOH Seizure precautions Dr. Caballero to see for hyponatremia Cardiology: Hypertension: Monitor BP will continue home medications Hyperlipidemia: Assessment/Plan: Patient refusing Lipitor will hold for now Neuro: CVA - uses a cane for support of left side Assessment/Plan: with no other residual deficits noted on exam patient states he went to [facility] after CVA Will order PT while hospitalized On Aggrenox BID F.E.N. Fluids: D5 @100cc/hr Electrolytes: monitor BMP Nutrition: regular diet Prophylaxis: DVT: on Aggrenox GI: Protonix Disposition: Requires inpatient hospitalization. Awaiting for a bed @ [facility]. Full code. Visit type - Emergency Visit Emergency Visit: Yes ED Registration Date: 04/02/17 Care time: The patient presented to the Emergency Department on the above date and was hospitalized for further evaluation of their emergent condition. - New Patient This patient is new to me today: No - Critical Care Critical Care patient: No - Discharge Referral Referred to [facility] Med P.C.: No
[2017-04-03] MEDS ORDERED: LORazepam 1 MG TABLET PO ONE (12:30)
--- NOTE | 2017-04-03 17:35 | CONSULT ---
Consult Consult Specialty:: Nephrology Reason for Consultation:: hyponatremia - History of Present Illness Chief Complaint: sent to ER for intoxication History of Present Illness: Pt is a 56 year old male with pmhx of HTN, etoh abuse, CVA, chol and pancreatitis who was sent in from [facility] for being intoxicated. He was found to by hyponatremic. He was given saline and his sodium aurea rapidly. I was called to evaluate him. He is now awake and alert. He says he drinks at least 12 to 15 cans of beer per day. He does not want to stop now. He says he has had low sodium in the past from drinking. He denies headache or change in vision. Pt is on a thiazide diuretic as outpt. - History Source History Provided By: Patient, Medical Record - Past Medical History METALLURGICAL SPECIALIST: Yes: CVA Cardio/Vascular: Yes: HTN, Hyperlipdemia - Alcohol/Substance Use Hx Alcohol Use: Yes (currently drinks daily) - Smoking History Smoking history: Current every day smoker Have you smoked in the past 12 months: Yes Aproximately how many cigarettes per day: 1 Home Medications - Allergies Allergies/Adverse Reactions: Allergies Allergy/AdvReac Type Severity Reaction Status Date / Time No Known Allergies Allergy Verified 04/01/17 23:20 - Home Medications Home Medications: Ambulatory Orders Losartan 50Mg/Hctz 12.5MG [Hyzaar -] 1 tab PO DAILY #30 tablet 11/23/16 Aspirin/Dipyridamole [Aggrenox -] 2 combo PO BID 04/02/17 Family Disease History - Family Disease History Family Disease History: CA: Mother ( FROM MS AND BREAST CANCER), Other: Father (ETOH DEPENDENT AND ) Review of Systems - Review of Systems Constitutional: reports: No Symptoms Eyes: reports: No Symptoms HENT: reports: No Symptoms Neck: reports: No Symptoms Cardiovascular: reports: No Symptoms Respiratory: reports: No Symptoms Genitourinary: reports: No Symptoms Musculoskeletal: reports: No Symptoms Integumentary: reports: No Symptoms Neurological: reports: No Symptoms Endocrine: reports: No Symptoms Hematology/Lymphatic: reports: No Symptoms Psychiatric: reports: No Symptoms Physical Exam Vital Signs: Vital Signs Temperature 98.5 F 04/03/17 14:00 Pulse Rate 75 04/03/17 09:00 Respiratory Rate 18 04/03/17 09:00 Blood Pressure 111/62 04/03/17 14:00 O2 Sat by Pulse Oximetry (%) 96 04/02/17 22:00 Constitutional: Yes: Anxious Eyes: Yes: Conjunctiva Clear HENT: Yes: Atraumatic Neck: Yes: Supple Cardiovascular: Yes: S1, S2 Respiratory: Yes: CTA Bilaterally Gastrointestinal: Yes: Soft Renal/: Yes: WNL Musculoskeletal: Yes: WNL Extremities: Yes: WNL Edema: No Neurological: Yes: Oriented Psychiatric: Yes: Oriented Labs: CBC, BMP 04/02/17 09:57 04/03/17 02:10 Laboratory Tests 04/02/17 04/02/17 04/02/17 01:05 01:05 01:05 WBC 13.0 H D Hgb 15.2 Sodium 124 L* Potassium 3.7 Chloride 84 L D Carbon Dioxide 25 Anion Gap 15 BUN 4 L D Creatinine 0.6 L Alcohol, Quantitative 106.1 H* 04/02/17 04/02/17 04/02/17 09:57 09:57 18:50 WBC 9.8 Hgb 15.1 Sodium 131 L 136 Potassium Chloride Carbon Dioxide Anion Gap BUN Creatinine 0.6 L 0.7 Alcohol, Quantitative 04/03/17 02:10 WBC Hgb Sodium 135 L Potassium 3.9 Chloride 102 Carbon Dioxide 26 Anion Gap 7 L BUN 13 Creatinine 0.7 Alcohol, Quantitative Imaging - Results Chest X-ray: Report Reviewed Problem List - Problems (1) Alcohol abuse Code(s): F10.10 - ALCOHOL ABUSE, UNCOMPLICATED (2) Hyponatremia Code(s): E87.1 - HYPO-OSMOLALITY AND HYPONATREMIA (3) CVA (cerebral vascular accident) Code(s): I63.9 - CEREBRAL INFARCTION, UNSPECIFIED Qualifiers: CVA mechanism: unspecified Qualified Code(s): I63.9 - Cerebral infarction, unspecified (4) HTN (hypertension) Code(s): I10 - ESSENTIAL (PRIMARY) HYPERTENSION Qualifiers: (5) Hypercholesteremia Code(s): E78.0 - PURE HYPERCHOLESTEROLEMIA * DO NOT USE * Assessment/Plan Current Medications Generic Name Dose Route Start Last Admin Trade Name Freq PRN Reason Stop Dose Admin Chlordiazepoxide HCl 25 mg 04/02/17 03:51 Librium - PO 04/05/17 03:50 Q4H PRN WITHDRAWAL(CONT SUBST) Chlordiazepoxide HCl 25 mg 04/03/17 05:00 04/03/17 17:06 Librium - PO 04/03/17 23:01 25 mg [id number] ZORAIDA Administration Chlordiazepoxide HCl 15 mg 04/04/17 05:00 Librium - PO 04/04/17 23:01 [id number] ZORAIDA Chlordiazepoxide HCl 10 mg 04/05/17 05:00 Librium - PO 04/05/17 23:01 [id number] ZORAIDA Cyanocobalamin 100 mcg 04/03/17 10:00 04/03/17 10:01 Vitamin B12 - PO 100 mcg DAILY ZORAIDA Administration Dipyridamole/Aspirin 1 combo 04/02/17 14:15 04/03/17 10:01 Aggrenox - PO 1 combo BID ZORAIDA Administration Folic Acid 1 mg 04/02/17 10:00 04/03/17 10:01 Folic Acid - PO 1 mg DAILY ZORAIDA Administration Gabapentin 300 mg 04/02/17 22:00 04/03/17 10:01 Neurontin - PO 300 mg BID ZORAIDA Administration Dextrose 1,000 mls @ 100 mls/hr 04/02/17 20:45 04/03/17 10:02 D5w - IV 100 mls/hr ASDIR ZORAIDA Administration Losartan Potassium 50 mg 04/03/17 10:00 04/03/17 10:01 Cozaar - PO 50 mg DAILY ZORAIDA Administration Multivitamins/Minerals/Vitamin C 1 tab 04/02/17 10:00 04/03/17 10:01 Tab-A-Vit - PO 1 tab DAILY ZORAIDA Administration Nicotine 21 mg 04/02/17 10:00 04/03/17 10:01 Nicoderm Patch - TD 21 mg DAILY ZORAIDA Administration Impression 1. hyponatremia 2. etoh abuse 3. hyperlipidemia 4. hx CVA 5. HTN Plan - cont with d5w and monitor sodium level - will not change fluids at this time - will order repeat bmp now, please call with results - do not restart HCTZ, blood pressure is stable - monitor for withdawl - will follow - discussed with medical team last night and today Dr Caballero
[2017-04-03] MEDS ORDERED: DEXTROSE 5%-WATER - 1,000 ML IV SCH ×2 (17:43→20:31)
[2017-04-03 18:52] LABS: CALCIUM 8.9 mg/dL (8.5-10.1); COCKROFT - GAULT 99.84; CREATININE 0.7 mg/dL (0.7-1.3)
--- NOTE | 2017-04-03 20:30 | PN ---
Progress Note (short form) - Note Progress Note: Laboratory Tests 04/03/17 18:00 Sodium 135 L Potassium 4.1 Chloride 97 L Carbon Dioxide 25 Anion Gap 13 BUN 15 Creatinine 0.7 Random Glucose 164 H Will decrease rate of fluids Repeat labs in am Problem List - Problems (1) Alcohol abuse Code(s): F10.10 - ALCOHOL ABUSE, UNCOMPLICATED (2) Hyponatremia Code(s): E87.1 - HYPO-OSMOLALITY AND HYPONATREMIA (3) CVA (cerebral vascular accident) Code(s): I63.9 - CEREBRAL INFARCTION, UNSPECIFIED Qualifiers: CVA mechanism: unspecified Qualified Code(s): I63.9 - Cerebral infarction, unspecified (4) HTN (hypertension) Code(s): I10 - ESSENTIAL (PRIMARY) HYPERTENSION Qualifiers: (5) Hypercholesteremia Code(s): E78.0 - PURE HYPERCHOLESTEROLEMIA * DO NOT USE *
[2017-04-04] MEDS: chlordiazePOXIDE 5 MG CAPSULE PO SCH ×4 (05:47→22:28)
[2017-04-04 07:58] LABS: BASOPHIL 0.7 % (0-2.0); EOSINOPHIL 1.9 % (0-4.5); MCH 32.8 pg (25.7-33.7); MCHC 34.6 g/dl (32.0-35.9); MEAN CELL VOLUME 94.8 fl (80-96); MEAN PLT VOLUME 7.2 fl (7.5-11.1); NEUTROPHILS 65.6 % (42.8-82.8); PLATELET COUNT 314 K/MM3 (134-434); RDW 13.4 % (11.9-15.9); WHITE BLOOD COUNT 8.1 K/mm3 (4.0-10.0)
[2017-04-04 08:27] LABS: ALBUMIN 3.6 g/dl (3.4-5.0); ANION GAP 9 (8-16); CALCIUM 8.7 mg/dL (8.5-10.1); CO2 25 mmol/L (21-32); COCKROFT - GAULT 116.48; CREATININE 0.6 mg/dL (0.7-1.3); GLUCOSE,RANDOM 121 mg/dL (74-106); SGOT/AST 12 U/L (15-37); SGPT/ALT 22 U/L (12-78)
[2017-04-04 08:29] LABS: ALK PHOS 124 U/L (45-117); BILIRUBIN,TOTAL 0.2 mg/dL (0.2-1.0); TOT PROT 6.5 g/dl (6.4-8.2)
[2017-04-04] MEDS: FOLIC ACID 1 MG TABLET (FP) PO SCH (09:27)
[2017-04-04] MEDS: CYANOCOBALAMIN (VITAMIN B-12) 100 MCG TABLET PO SCH (09:27)
[2017-04-04] MEDS: NICOTINE 21 MG/24 HOURS TOPICAL PATCH TD SCH (09:27)
[2017-04-04] MEDS: ASPIRIN/DIPYRIDAMOLE 25 MG/200 MG CAPSULE (FP) PO SCH ×2 (09:27→22:27)
[2017-04-04] MEDS: GABAPENTIN 300 MG CAPSULE (FP) PO SCH ×2 (09:27→22:27)
[2017-04-04] MEDS: MULTIVITAMINS (DAILY MVI) TABLET (FP) PO SCH (09:27)
[2017-04-04] MEDS: LOSARTAN POTASSIUM 50 MG TABLET (FP) PO SCH (09:28)
--- NOTE | 2017-04-04 11:27 | PN ---
Physical Exam: SUBJECTIVE: Patient seen and examined. Patient states that when he was drinking his coffee this morning he began to have hand tremors OBJECTIVE: Anxious/restless today, concern for upper ext. tremors mild hand tremors on my exam Not agitated, but restless, wants to stop drinking but still craving ativan 1mg x 1 CIWA 4 (anxiety/restless/mild hand tremors) Vital Signs Period Temp Pulse Resp BP Sys/Phelps Pulse Ox Last 24 Hr 98.1 F-98.5 F 87-103 16-20 111-143/59-88 96 GENERAL: Awake, alert, and fully oriented, anxious HEAD: Normal with no signs of trauma. EYES: Pupils equal, round and reactive to light, extraocular movements intact, sclera anicteric, conjunctiva clear. No lid lag. EARS, NOSE, THROAT: Ears normal, nares patent, oropharynx clear without exudates. Moist mucous membranes. NECK: Normal range of motion, supple without lymphadenopathy, JVD, or masses. ABDOMEN: Soft, nontender, not distended, normoactive bowel sounds, no guarding, no rebound, no masses. No hepatomegaly or splenomegaly. MUSCULOSKELETAL: Normal range of motion at all joints. No bony deformities or tenderness. No CVA tenderness. UPPER EXTREMITIES: 2+ pulses, warm, well-perfused. No cyanosis. No clubbing. No peripheral edema. LOWER EXTREMITIES: 2+ pulses, warm, well-perfused. No calf tenderness. No peripheral edema. NEUROLOGICAL: Mild tremors to upper extremities. Moderate anxiety. PSYCHIATRIC: Cooperative. Good eye contact. Appropriate mood and affect. SKIN: Warm, dry, normal turgor, no rashes or lesions noted, normal capillary refill. Laboratory Results - last 24 hr 04/03/17 04/04/17 04/04/17 18:00 07:00 07:00 WBC 8.1 RBC 4.49 Hgb 14.7 Hct 42.6 MCV 94.8 MCHC 34.6 RDW 13.4 Plt Count 314 MPV 7.2 L Neutrophils % 65.6 Lymphocytes % 21.8 D Monocytes % 10.0 Eosinophils % 1.9 D Basophils % 0.7 Sodium 135 L 135 L Potassium 4.1 4.2 Chloride 97 L 101 Carbon Dioxide 25 25 Anion Gap 13 9 BUN 15 10 D Creatinine 0.7 0.6 L Creat Clearance w eGFR > 60 Random Glucose 164 H 121 H D Calcium 8.9 8.7 Total Bilirubin 0.2 D AST 12 L ALT 22 Alkaline Phosphatase 124 H Total Protein 6.5 Albumin 3.6 Active Medications Generic Name Dose Route Start Last Admin Trade Name Freq PRN Reason Stop Dose Admin Chlordiazepoxide HCl 25 mg 04/02/17 03:51 Librium - PO 04/05/17 03:50 Q4H PRN WITHDRAWAL(CONT SUBST) Chlordiazepoxide HCl 15 mg 04/04/17 05:00 04/04/17 05:47 Librium - PO 04/04/17 23:01 15 mg [id number] ZORAIDA Administration Chlordiazepoxide HCl 10 mg 04/05/17 05:00 Librium - PO 04/05/17 23:01 [id number] ZORAIDA Cyanocobalamin 100 mcg 04/03/17 10:00 04/04/17 09:27 Vitamin B12 - PO 100 mcg DAILY ZORAIDA Administration Dipyridamole/Aspirin 1 combo 04/02/17 14:15 04/04/17 09:27 Aggrenox - PO 1 combo BID ZORAIDA Administration Folic Acid 1 mg 04/02/17 10:00 04/04/17 09:27 Folic Acid - PO 1 mg DAILY ZORAIDA Administration Gabapentin 300 mg 04/02/17 22:00 04/04/17 09:27 Neurontin - PO 300 mg BID ZORAIDA Administration Losartan Potassium 50 mg 04/03/17 10:00 04/04/17 09:28 Cozaar - PO 50 mg DAILY ZORAIDA Administration Multivitamins/Minerals/Vitamin C 1 tab 04/02/17 10:00 04/04/17 09:27 Tab-A-Vit - PO 1 tab DAILY ZORAIDA Administration Nicotine 21 mg 04/02/17 10:00 04/04/17 09:27 Nicoderm Patch - TD 21 mg DAILY ZORAIDA Administration ASSESSMENT/PLAN: Patient is a 56 year old male with a past medical history of hypertension, hyperlipidemia, CVA x 2 (08/29, 10/29), ETOH abuse and pancreatitis. He presented to the ED from [facility] detox for intoxication. The patient tried to be admitted for detox at [facility] but he could not be taken because they were full but was not able to be sent home because he was intoxicated. He was sent to the ED for further evaluation. Patient reports drinking 12-15 beers per day for the past month. He denies seizures, hallucinations or vomiting. On admission his sodium levels was 124, ETOH level >100. I called patient's pharmacy @ [facility] to reconcile patient's medications: Aggrenox BID, Lipitor 40mg @ hs, B12 100mg daily, Losartan 50mg/Hctz 12.5, Folic acid daily, Vitamin B1 100mg daily, Gabapentin 300mg BID Neuro/Psych: Acute alcohol intoxication/abuse - acute on chronic Assessment/Plan: Patient planning on alcohol detox at [facility], admitted to [facility] as pt was intoxicated and no beds were available CIWA 4 (anxiety/restless/mild hand tremors) Ativan 1mg PO x 1, has PRN Librium for withdrawal symptoms Dr Teo Swann consulted and following Psych following Seizure precautions Renal: Severe Hyponatremia - improved Assessment/Plan: Likely secondary to ETOH Seizure precautions Dr. Caballero following for hyponatremia On D5 @ 50cc/hr Cardiology: Hypertension: Monitor BP Hyperlipidemia: Assessment/Plan: Patient refusing Lipitor will hold for now Neuro: CVA - uses a cane for support of left side Assessment/Plan: with no other residual deficits noted on exam patient states he went to [facility] after CVA Will order PT while hospitalized On Aggrenox BID F.E.N. Fluids: D5 @50 cc/hr Electrolytes: monitor BMP Nutrition: regular diet Prophylaxis: DVT: on Aggrenox GI: Protonix Disposition: Requires inpatient hospitalization. Awaiting for a bed @ [facility] [place]. Full code. Visit type - Emergency Visit Emergency Visit: Yes ED Registration Date: 04/02/17 Care time: The patient presented to the Emergency Department on the above date and was hospitalized for further evaluation of their emergent condition. - New Patient This patient is new to me today: No - Critical Care Critical Care patient: No - Discharge Referral Referred to [facility] Med P.C.: No
[2017-04-04] MEDS ORDERED: LORazepam 1 MG TABLET PO ONE (11:45)
--- NOTE | 2017-04-04 16:11 | PN ---
Progress Note, Physician History of Present Illness: Pt seen and examined at bedside. He is awake and alert. - Current Medication List Current Medications: Active Medications Chlordiazepoxide HCl (Librium -) 25 mg PO Q4H PRN PRN Reason: WITHDRAWAL(CONT SUBST) Stop: 04/05/17 03:50 Chlordiazepoxide HCl (Librium -) 15 mg PO [id number] [facility] Stop: 04/04/17 23:01 Last Admin: 04/04/17 11:47 Dose: 15 mg Chlordiazepoxide HCl (Librium -) 10 mg PO [id number] [facility] Stop: 04/05/17 23:01 Cyanocobalamin (Vitamin B12 -) 100 mcg PO DAILY [facility] Last Admin: 04/04/17 09:27 Dose: 100 mcg Dipyridamole/Aspirin (Aggrenox -) 1 combo PO BID [facility] Last Admin: 04/04/17 09:27 Dose: 1 combo Folic Acid (Folic Acid -) 1 mg PO DAILY [facility] Last Admin: 04/04/17 09:27 Dose: 1 mg Gabapentin (Neurontin -) 300 mg PO BID [facility] Last Admin: 04/04/17 09:27 Dose: 300 mg Losartan Potassium (Cozaar -) 50 mg PO DAILY [facility] Last Admin: 04/04/17 09:28 Dose: 50 mg Multivitamins/Minerals/Vitamin C (Tab-A-Vit -) 1 tab PO DAILY [facility] Last Admin: 04/04/17 09:27 Dose: 1 tab Nicotine (Nicoderm Patch -) 21 mg TD DAILY [facility] Last Admin: 04/04/17 09:27 Dose: 21 mg - Objective Vital Signs: Vital Signs Temperature 98.1 F 04/04/17 16:02 Pulse Rate 82 04/04/17 16:02 Respiratory Rate 18 04/04/17 10:00 Blood Pressure 141/82 04/04/17 16:02 O2 Sat by Pulse Oximetry (%) 97 04/04/17 09:00 Constitutional: Yes: Calm Eyes: Yes: Conjunctiva Clear HENT: Yes: Atraumatic Neck: Yes: Supple Cardiovascular: Yes: S1, S2 Respiratory: Yes: CTA Bilaterally Gastrointestinal: Yes: Soft Musculoskeletal: Yes: WNL Extremities: Yes: WNL Edema: No Neurological: Yes: Oriented Labs: CBC, BMP 04/04/17 07:00 04/04/17 07:00 Problem List - Problems (1) Alcohol abuse Code(s): F10.10 - ALCOHOL ABUSE, UNCOMPLICATED (2) Hyponatremia Code(s): E87.1 - HYPO-OSMOLALITY AND HYPONATREMIA (3) CVA (cerebral vascular accident) Code(s): I63.9 - CEREBRAL INFARCTION, UNSPECIFIED Qualifiers: CVA mechanism: unspecified Qualified Code(s): I63.9 - Cerebral infarction, unspecified (4) HTN (hypertension) Code(s): I10 - ESSENTIAL (PRIMARY) HYPERTENSION Qualifiers: (5) Hypercholesteremia Code(s): E78.0 - PURE HYPERCHOLESTEROLEMIA * DO NOT USE * Assessment/Plan Current Medications Generic Name Dose Route Start Last Admin Trade Name Freq PRN Reason Stop Dose Admin Chlordiazepoxide HCl 25 mg 04/02/17 03:51 Librium - PO 04/05/17 03:50 Q4H PRN WITHDRAWAL(CONT SUBST) Chlordiazepoxide HCl 15 mg 04/04/17 05:00 04/04/17 11:47 Librium - PO 04/04/17 23:01 15 mg [id number] ZORAIDA Administration Chlordiazepoxide HCl 10 mg 04/05/17 05:00 Librium - PO 04/05/17 23:01 [id number] ZORAIDA Cyanocobalamin 100 mcg 04/03/17 10:00 04/04/17 09:27 Vitamin B12 - PO 100 mcg DAILY ZORAIDA Administration Dipyridamole/Aspirin 1 combo 04/02/17 14:15 04/04/17 09:27 Aggrenox - PO 1 combo BID ZORAIDA Administration Folic Acid 1 mg 04/02/17 10:00 04/04/17 09:27 Folic Acid - PO 1 mg DAILY ZORAIDA Administration Gabapentin 300 mg 04/02/17 22:00 04/04/17 09:27 Neurontin - PO 300 mg BID ZORAIDA Administration Losartan Potassium 50 mg 04/03/17 10:00 04/04/17 09:28 Cozaar - PO 50 mg DAILY ZORAIDA Administration Multivitamins/Minerals/Vitamin C 1 tab 04/02/17 10:00 04/04/17 09:27 Tab-A-Vit - PO 1 tab DAILY ZORAIDA Administration Nicotine 21 mg 04/02/17 10:00 04/04/17 09:27 Nicoderm Patch - TD 21 mg DAILY ZORAIDA Administration Impression 1. hyponatremia 2. etoh abuse 3. hyperlipidemia 4. hx CVA 5. HTN Plan - stop fluids - repeat labs in am - encourage PO intake - do not restart thiazide - can increase cozaar to 100 mg if bp becomes elevated - pt should stop drinking alcohol - monitor for withdawl - will follow Dr Caballero
[2017-04-04] MEDS ORDERED: ACETAMINOPHEN 325 MG TABLET (FP) PO ONE (20:32)
[2017-04-05] MEDS: chlordiazePOXIDE 5 MG CAPSULE PO SCH ×2 (05:57→11:26)
[2017-04-05 07:29] LABS: BASOPHIL 0.7 % (0-2.0); EOSINOPHIL 1.9 % (0-4.5); MCH 32.5 pg (25.7-33.7); MEAN CELL VOLUME 95.7 fl (80-96); NEUTROPHILS 65.1 % (42.8-82.8); PLATELET COUNT 306 K/MM3 (134-434); RDW 13.5 % (11.9-15.9); WHITE BLOOD COUNT 8.8 K/mm3 (4.0-10.0)
[2017-04-05 08:34] LABS: ALBUMIN 3.7 g/dl (3.4-5.0); ALK PHOS 109 U/L (45-117); ANION GAP 12 (8-16); BILIRUBIN,TOTAL 0.4 mg/dL (0.2-1.0); CO2 27 mmol/L (21-32); COCKROFT - GAULT 116.48; CREATININE 0.6 mg/dL (0.7-1.3); GLUCOSE,RANDOM 105 mg/dL (74-106); SGOT/AST 13 U/L (15-37); SGPT/ALT 24 U/L (12-78); TOT PROT 6.7 g/dl (6.4-8.2)
[2017-04-05 09:29] VITALS: BP 124/79; PULSE 90; TEMP 98.4
[2017-04-05] MEDS: MULTIVITAMINS (DAILY MVI) TABLET (FP) PO SCH (09:29)
[2017-04-05] MEDS: ASPIRIN/DIPYRIDAMOLE 25 MG/200 MG CAPSULE (FP) PO SCH (09:29)
[2017-04-05] MEDS: GABAPENTIN 300 MG CAPSULE (FP) PO SCH (09:29)
[2017-04-05] MEDS: FOLIC ACID 1 MG TABLET (FP) PO SCH (09:29)
[2017-04-05] MEDS: CYANOCOBALAMIN (VITAMIN B-12) 100 MCG TABLET PO SCH (09:30)
[2017-04-05] MEDS: LOSARTAN POTASSIUM 50 MG TABLET (FP) PO SCH (09:30)
[2017-04-05] MEDS: NICOTINE 21 MG/24 HOURS TOPICAL PATCH TD SCH (09:30)
--- NOTE | 2017-04-05 10:54 | DS ---
Physical Exam: SUBJECTIVE: Patient seen and examined. Saw his 13 year old daughter yesterday and wants to continue rehab so that he can be a better father for her. Tearful on exam. OBJECTIVE: Less anxious, no tremors Ambulated with PT this morning, steady gait. Vital Signs Period Temp Pulse Resp BP Sys/Phelps Pulse Ox Last 24 Hr 97.8 F-98.4 F 82-90 18-20 124-145/70-87 97 PHYSICAL EXAM GENERAL: Awake, alert, and fully oriented, less anxious HEAD: Normal with no signs of trauma. EYES: Pupils equal, round and reactive to light, extraocular movements intact, sclera anicteric, conjunctiva clear. No lid lag. EARS, NOSE, THROAT: Ears normal, nares patent, oropharynx clear without exudates. Moist mucous membranes. NECK: Normal range of motion, supple without lymphadenopathy, JVD, or masses. ABDOMEN: Soft, nontender, not distended, normoactive bowel sounds, no guarding, no rebound, no masses. No hepatomegaly or splenomegaly. MUSCULOSKELETAL: Normal range of motion at all joints. No bony deformities or tenderness. No CVA tenderness. UPPER EXTREMITIES: 2+ pulses, warm, well-perfused. No cyanosis. No clubbing. No peripheral edema. LOWER EXTREMITIES: 2+ pulses, warm, well-perfused. No calf tenderness. No peripheral edema. NEUROLOGICAL: NO tremors to upper extremities. less anxious PSYCHIATRIC: Cooperative. Good eye contact. Appropriate mood and affect. SKIN: Warm, dry, normal turgor, no rashes or lesions noted, normal capillary refill. LABS Laboratory Results - last 24 hr 04/05/17 04/05/17 06:30 06:30 WBC 8.8 RBC 4.56 Hgb 14.8 Hct 43.6 MCV 95.7 MCHC 34.0 RDW 13.5 Plt Count 306 MPV 7.0 L Neutrophils % 65.1 Lymphocytes % 21.8 Monocytes % 10.5 H Eosinophils % 1.9 Basophils % 0.7 Sodium 137 Potassium 4.2 Chloride 98 Carbon Dioxide 27 Anion Gap 12 BUN 8 Creatinine 0.6 L Creat Clearance w eGFR > 60 Random Glucose 105 Calcium 9.0 Total Bilirubin 0.4 D AST 13 L ALT 24 Alkaline Phosphatase 109 Total Protein 6.7 Albumin 3.7 HOSPITAL COURSE: Date of Admission:04/02/17 Date of Discharge: 04/05/17 Patient is a 56 year old male with a past medical history of hypertension, hyperlipidemia, CVA x 2 (08/29, 10/29), ETOH abuse and pancreatitis. He presented to the ED from [facility] detox for intoxication. The patient tried to be admitted for detox at [facility] but he could not be taken because they were full but was not able to be sent home because he was intoxicated. He was sent to the ED for further evaluation. Patient reports drinking 12-15 beers per day for the past month. He denies seizures, hallucinations or vomiting. On admission his sodium levels was 124, ETOH level >100. Neuro/Psych: Acute alcohol intoxication/abuse - to continue detox/rehab @ [facility] Assessment/Plan: Patient planning on alcohol detox at [facility], admitted to [facility] as pt was intoxicated and no beds were available Dr Teo Swann aware and accepts patient to [facility], there is a bed available To continue Librium protocol then rehab Seizure precautions Renal: Severe Hyponatremia - resolved NA 124>137 Assessment/Plan: Likely in the setting of to ETOH abuse Patient received adequate hydration during hospitalization, renal followed for electrolyte imbalance Stop the Hyzaar and continue Cozaar as per renal recommendations Cozaar called into pt's pharmacy @ [facility] Cardiology: Hypertension: Monitor BP Hyperlipidemia: Assessment/Plan: Patient refusing Lipitor will hold for now Neuro: CVA - uses a cane for support of left side - but refusing to use cane Assessment/Plan: with no other residual deficits noted on exam On Aggrenox BID Disposition: Transfer to [facility] for detox and rehab. Full code. Minutes to complete discharge: 60 Discharge Summary Reason For Visit: HYPONATREMIA ALCOHOL ABUSE Current Active Problems Alcohol abuse (Acute) Hyponatremia (Acute) Condition: Stable - Instructions Diet, Activity, Other Instructions: Mr. Clancy You will be transferred to [facility] to continue the detox and then rehab. Please note that when you go back home, DO NOT continue taking the Losartan/ hydrochlorothiazide (Hyzaar) this medications has been replaced with Cozaar 50mg daily (which I have also called into your pharmacy at [facility]). Please return to the ER with any worsening or persistent symptoms. Please follow up with your PCP within 1 week after discharge from [facility]. Please call me with any questions. Sandhya Bell SKIMMER [phone] Referrals: STAFF,NOT ON [Primary Care Provider] - Edwin Wilkes MD [Staff Physician] - Disposition: TRANSFER ACUTE CARE/OTHER HOSP - Home Medications Comprehensive Discharge Medication List: Ambulatory Orders Losartan 50Mg/Hctz 12.5MG [Hyzaar -] 1 tab PO DAILY #30 tablet 11/23/16 Aspirin/Dipyridamole [Aggrenox -] 2 combo PO BID 04/02/17 This patient is new to me today: No Emergency Visit: Yes ED Registration Date: 04/02/17 Care time: The patient presented to the Emergency Department on the above date and was hospitalized for further evaluation of their emergent condition. Critical Care patient: No - Discharge Referral Referred to [facility] Med [facility].C.: No
== END 2017-04-05 11:47 | disposition other institution (70) | DRG 775 ==
LOC: JER 21:59 → JERBED 04-02 02:39 → UNDOADMIN 04-02 02:52 → J6S 04-02 06:04 → JERBED 04-02 06:04
PROVIDERS: ADMIT Internal Medicine; ATTEND Nurse Practitioner Family
PROC: HZ2ZZZZ Detoxification Services for Substance Abuse Treatment (ICD-10-PCS; principal; 2017-04-02)
DX: F10.230 Alcohol dependence with withdrawal, uncomplicated (principal); I10 Essential (primary) hypertension; E78.5 Hyperlipidemia, unspecified; E78.00 Pure hypercholesterolemia, unspecified; E87.1 Hypo-osmolality and hyponatremia; F17.200 Nicotine dependence, unspecified, uncomplicated; F41.8 Other specified anxiety disorders; E86.0 Dehydration; Z86.73 Personal history of transient ischemic attack (TIA), and cerebral infarction without residual deficits; K86.1 Other chronic pancreatitis
CPT/HCPCS: 36415; 71020-TC; 80048; 80053; 80307; 82009; 83690; 83735; 84100; 85025; 93005; 93010; 97116-GP; 97161-GP; 99282-25

== ENCOUNTER 2017-04-05 12:41 | Inpatient (IN) | payer OTHER ==
[2017-04-05 15:36] VITALS: BMI 20.3
--- NOTE | 2017-04-05 16:25 | HP ---
CIWA Score - CIWA Score Nausea/Vomitin-No Nausea/No Vomiting Muscle Tremors: 4-Moderate,w/Arms Extend Anxiety: 4-Mod. Anxious/Guarded Agitation: 4-Moderately Restless Paroxysmal Sweats: No Perspiration Orientation: 0-Oriented Tacttile Disturbances: 0-None Auditory Disturbances: 0-None Visual Disturbances: 0-None Headache: 1-Very Mild (alcohol intoxicate treated at [facility] x 3 days, case discuss with medical director/head team physician, admitted to detox x 1 day due to residual withdrawal sx) CIWA-Ar Total Score: 13 Admission ROS BHS - HPI Chief Complaint: withdrawal sx Allergies/Adverse Reactions: Allergies Allergy/AdvReac Type Severity Reaction Status Date / Time No Known Allergies Allergy Verified 04/01/17 23:20 History of Present Illness: 56 years old male with long history of alcohol nicotine dependence, hypertension , neuropathy and depression is admitted to detox Exam Limitations: No Limitations - Ebola screening Have you traveled outside of the country in the last 21 days: No Have you had contact with anyone from an Ebola affected area: No Have you been sick,other than usual withdrawal symptoms: No Do you have a fever: No - Review of Systems Constitutional: Chills, Loss of Appetite, Changes in sleep, Unintentional Wgt. Loss, Unexplained wgt Loss EENT: reports: No Symptoms Reported Respiratory: reports: Productive cough (greenish) Cardiac: reports: No Symptoms Reported GI: reports: Poor Appetite, Poor Fluid Intake, Indigestion, Abdominal cramping : reports: No Symptoms Reported Musculoskeletal: reports: Back Pain Integumentary: reports: No Symptoms Reported Neuro: reports: Numbness, Tingling (legs), Tremors Endocrine: reports: No Symptoms Reported Hematology: reports: No Symptoms Reported Psychiatric: reports: Judgement Intact, Depressed Other Systems: Reviewed and Negative Patient History - Patient Medical History Hx Anemia: Yes Hx Asthma: No Hx Chronic Obstructive Pulmonary Disease (COPD): No Hx Cancer: No Hx Cardiac Disorders: Yes Hx Congestive Heart Failure: No Hx Hypertension: Yes Hx Hypercholesterolemia: No Hx Pacemaker: No HX Cerebrovascular Accident: Yes (x 2) Hx Seizures: No Hx Diabetes: No Hx Gastrointestinal Disorders: Yes (PANCREATITIS x 1 2016 gerd) Hx Liver Disease: No Hx Genitourinary Disorders: Yes (bph) Hx Sexually Transmitted Disorders: No Hx Renal Disease (ESRD): No Hx Thyroid Disease: No Hx Human Immunodeficiency Virus (HIV): No Hx Hepatitis C: No Hx Depression: Yes (AND ANXIETY) Hx Suicide Attempt: No Hx Bipolar Disorder: No Hx Schizophrenia: No - Patient Surgical History Past Surgical History: Yes Hx Neurologic Surgery: No Hx Cataract Extraction: No Hx Cardiac Surgery: No Hx Lung Surgery: No Hx Breast Surgery: No Hx Breast Biopsy: No Hx Abdominal Surgery: No Hx Appendectomy: Yes (RUPTURED APPENDIX 09/2015) Hx Cholecystectomy: No Hx Genitourinary Surgery: No Hx Orthopedic Surgery: No Anesthesia Reaction: No - PPD History Previous Implant?: Yes Documented Results: Negative w/o proof Implanted On Prior R Admission?: Yes Date: 08/31/16 Results: 0MM PPD to be Administered?: No - Smoking Cessation Smoking history: Current every day smoker Have you smoked in the past 12 months: Yes Aproximately how many cigarettes per day: 20 Cigars Per Day: 0 Hx Chewing Tobacco Use: No Initiated information on smoking cessation: Yes 'Breaking Loose' booklet given: 04/05/17 - Substance & Tx. History Hx Alcohol Use: Yes Hx Substance Use: No Substance Use Type: Alcohol Hx Substance Use Treatment: Yes - Substances Abused Alcohol Route: Oral Frequency: Daily Amount used: [id number] Age of first use: 14 Date of Last Use: 04/01/17 Family Disease History - Family Disease History Family Disease History: CA: Mother ( FROM MS AND BREAST CANCER), Other: Father (ETOH DEPENDENT AND ) Admission Physical Exam BHS - Vital Signs Vital Signs: Vital Signs - 24 hr 04/05/17 15:33 Temperature 96.8 F L Pulse Rate 83 Respiratory 20 Rate Blood Pressure 144/83 - Physical General Appearance: Yes: Appropriately Dressed, Mild Distress, Tremorous, Anxious HEENTM: Yes: Hearing grossly Normal, Normal ENT Inspection, Normocephalic, Normal Voice Respiratory: Yes: Chest Non-Tender, Lungs Clear, Normal Breath Sounds, No Respiratory Distress, No Accessory Muscle Use Neck: Yes: Supple, Trachea in good position Breast: Yes: Breasts Symetrical Cardiology: Yes: Regular Rhythm, Regular Rate, S1, S2 Abdominal: Yes: Non Tender, Soft Back: Yes: Normal Inspection Musculoskeletal: Yes: full range of Motion, Gait Steady, Back pain, Muscle Pain Extremities: Yes: Normal Inspection, Normal Range of Motion, Non-Tender, Tremors Neurological: Yes: Fully Oriented, Alert, Motor Strength 5/5, Normal Response, Depressed Affect Integumentary: Yes: Warm Lymphatic: Yes: Within Normal Limits - Diagnostic (1) Alcohol dependence with uncomplicated withdrawal Current Visit: Yes Status: Acute (2) HTN (hypertension) Current Visit: Yes Status: Chronic Qualifiers: Hypertension type: essential hypertension (3) Nicotine dependence Current Visit: Yes Status: Acute Qualifiers: Nicotine product type: cigarettes Substance use status: in withdrawal Qualified Code(s): F17.213 - Nicotine dependence, cigarettes, with withdrawal (4) BPH (benign prostatic hyperplasia) Current Visit: Yes Status: Chronic Qualifiers: Prostatic enlargement morphology: non-nodular Lower urinary tract symptom presence: symptoms absent Qualified Code(s): N40.0 - Benign prostatic hyperplasia without lower urinary tract symptoms (5) GERD (gastroesophageal reflux disease) Current Visit: Yes Status: Chronic Qualifiers: Esophagitis presence: without esophagitis Qualified Code(s): K21.9 - Gastro-esophageal reflux disease without esophagitis (6) Weight loss Current Visit: Yes Status: Acute (7) Chronic lower back pain Current Visit: Yes Status: Chronic Qualifiers: Back pain laterality: left Sciatica laterality: sciatica of left side (8) Sequela, post-stroke Current Visit: Yes Status: Chronic Comment: 2015 weakness of left leg Cleared for Admission [facility] - Detox or Rehab [facility] Level of Care: Medically Managed Detox Regimen/Protocol: Librium [facility] Breath Alcohol Content Breath Alcohol Content: 0 Urine Drug Screen - Results Drug Screen Negative: No Urine Drug Screen Results: BZO-Benzodiazepines
[2017-04-05] MEDS ORDERED: diphenhydrAMINE HCL 50 MG CAPSULE PO PRN (16:32)
[2017-04-05] MEDS ORDERED: MAG HYDROX/AL HYDROX/SIMETH 30 ML UNIT-DOSE CUP PO PRN (16:32)
[2017-04-05] MEDS ORDERED: guaiFENesin/D-METHORPHAN HB 10 ML UNIT-DOSE CUPS PO PRN (16:32)
[2017-04-05] MEDS ORDERED: ACETAMINOPHEN 325 MG TABLET (FP) PO PRN (16:32)
[2017-04-05] MEDS ORDERED: chlordiazePOXIDE HCL 25 MG CAPSULE PO PRN (16:32)
[2017-04-05] MEDS ORDERED: MAGNESIUM CITRATE 300 ML BOTTLE PO PRN (16:32)
[2017-04-05] MEDS ORDERED: MENTHOL/PHENOL 1 EACH UD MM PRN (16:32)
[2017-04-05] MEDS ORDERED: P-EPHED 60MG/TRIPROLIDI 2.5MG TABLET PO PRN (16:32)
[2017-04-05] MEDS ORDERED: NICOTINE POLACRILEX 4 MG GUM BC PRN (16:32)
[2017-04-05] MEDS ORDERED: MAGNESIUM HYDROX 2400MG/30ML ORAL SUSPENSION 30 ML CUP PO PRN (16:32)
[2017-04-05] MEDS ORDERED: LOPERAMIDE HCL 2 MG CAPSULE PO PRN (16:32)
[2017-04-05] MEDS: chlordiazePOXIDE HCL 10 MG CAPSULE PO SCH ×2 (19:54→22:29)
[2017-04-05] MEDS: ASPIRIN/DIPYRIDAMOLE 25 MG/200 MG CAPSULE (FP) PO SCH (22:28)
[2017-04-05] MEDS: GABAPENTIN 300 MG CAPSULE (FP) PO SCH (22:29)
[2017-04-05] MEDS: THIAMINE HCL 100 MG TABLET (FP) PO SCH (22:29)
[2017-04-05] MEDS: RANITIDINE HCL 150 MG TABLET (FP) PO SCH (22:29)
[2017-04-06] MEDS: TAMSULOSIN HCL 0.4 MG CAP.ER.24H (FP) PO SCH (09:18)
[2017-04-06 10:10] LABS: MCH 32.8 pg (25.7-33.7); MCHC 34.3 g/dl (32.0-35.9); MEAN CELL VOLUME 95.8 fl (80-96); MEAN PLT VOLUME 7.1 fl (7.5-11.1); PLATELET COUNT 317 K/MM3 (134-434); RDW 13.9 % (11.9-15.9); WHITE BLOOD COUNT 10.9 K/mm3 (4.0-10.0)
[2017-04-06] MEDS: CYANOCOBALAMIN (VITAMIN B-12) 100 MCG TABLET PO SCH (10:21)
[2017-04-06] MEDS: RANITIDINE HCL 150 MG TABLET (FP) PO SCH ×2 (10:21→22:30)
[2017-04-06] MEDS: GABAPENTIN 300 MG CAPSULE (FP) PO SCH ×2 (10:21→22:10)
[2017-04-06] MEDS: PRENATAL VITAMINS W/ FOLIC ACID TABLET (FP) PO SCH (10:21)
[2017-04-06] MEDS: hydrOXYzine PAMOATE 50 MG CAPSULE (FP) PO PRN ×3 (10:21→22:10)
[2017-04-06] MEDS: ASPIRIN/DIPYRIDAMOLE 25 MG/200 MG CAPSULE (FP) PO SCH ×2 (10:21→22:10)
[2017-04-06] MEDS: LOSARTAN POTASSIUM 50 MG TABLET (FP) PO SCH (10:21)
[2017-04-06] MEDS: NICOTINE 21 MG/24 HOURS TOPICAL PATCH TD SCH (10:22)
[2017-04-06] MEDS: LIDOCAINE 5% TOPICAL PATCH TP SCH (10:22)
[2017-04-06 10:56] LABS: ALBUMIN 3.7 g/dl (3.4-5.0); ALK PHOS 97 U/L (45-117); ANION GAP 11 (8-16); BILIRUBIN,TOTAL 0.2 mg/dL (0.2-1.0); CALCIUM 9.1 mg/dL (8.5-10.1); CO2 29 mmol/L (21-32); COCKROFT - GAULT 117.38; CREATININE 0.6 mg/dL (0.7-1.3); GLUCOSE,RANDOM 87 mg/dL (74-106); SGOT/AST 13 U/L (15-37); SGPT/ALT 25 U/L (12-78); TOT PROT 6.8 g/dl (6.4-8.2)
--- NOTE | 2017-04-06 11:00 | CONSULT ---
[facility] Psychiatric Consult - Data Date of interview: 04/06/17 Admission source: [facility] Identifying data: Readmission to [facility] for this 56 y/o male seeking detox treatment on for alcohol dependence.Patient is , a father of one,currently homeless,unemployed/disabled (CVA X 3) and supported on SSD benefits. Substance Abuse History: - Smoking Cessation. Smoking history: Current every day smoker. Have you smoked in the past 12 months: Yes. Aproximately how many cigarettes per day: 20. Cigars Per Day: 0. Hx Chewing Tobacco Use: No. Initiated information on smoking cessation: Yes. 'Breaking Loose' booklet given : 04/05/17. - Substance & Tx. History. Hx Alcohol Use: Yes. Hx Substance Use : No. Substance Use Type: Alcohol. Hx Substance Use Treatment: Yes. - Substances Abused. Alcohol. Route: Oral. Frequency: Daily. Amount used: [id number]. Age of first use: 14. 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 Psychiatric History: Patient denies history of psychiatric hospitalizations." I don't have a psychiatric diagnosis." No longer under the care of private psychiatrist,Dr Perales,in [facility].Mr Clancy states that he stopped taking Wellbutrin (used to be on 150 mg/day).Medication is re-offered to the patient.He refuses.No reported history of suicide attempts.Historical diagnosis is Major Depressive Disorder (as per previous records). Physical/Sexual Abuse/Trauma History: Patient denies history of abuse. Mental Status Exam - Mental Status Exam Alert and Oriented to: Time, Place, Person Cognitive Function: Good Patient Appearance: Unkempt, Disheveled Mood: Nervous, Withdrawn, Irritable Affect: Mood Congruent Patient Behavior: Cooperative (superficially coperative) Speech Pattern: Clear Voice Loudness: Normal Thought Process: Goal Oriented Thought Disorder: Not Present Hallucinations: Denies Suicidal Ideation: Denies Homicidal Ideation: Denies Insight/Judgement: Poor Sleep: Fair Appetite: Fair Gait/Station: Other (unsteady gait;needs cane for ambulation) Psychiatric Findings - Problem List ([place] 1, 2,3) (1) Alcohol dependence with uncomplicated withdrawal Current Visit: Yes Status: Acute (2) Nicotine dependence Current Visit: Yes Status: Acute Qualifiers: Nicotine product type: cigarettes Substance use status: in withdrawal Qualified Code(s): F17.213 - Nicotine dependence, cigarettes, with withdrawal (3) Alcohol-induced mood disorder Current Visit: Yes Status: Acute (4) Depressive disorder Current Visit: No Status: Chronic (5) Weight loss Current Visit: Yes Status: Chronic (6) BPH (benign prostatic hyperplasia) Current Visit: Yes Status: Chronic Qualifiers: Prostatic enlargement morphology: non-nodular Lower urinary tract symptom presence: symptoms absent Qualified Code(s): N40.0 - Benign prostatic hyperplasia without lower urinary tract symptoms (7) Chronic lower back pain Current Visit: Yes Status: Chronic Qualifiers: Back pain laterality: left Sciatica laterality: sciatica of left side (8) GERD (gastroesophageal reflux disease) Current Visit: Yes Status: Chronic Qualifiers: Esophagitis presence: without esophagitis Qualified Code(s): K21.9 - Gastro-esophageal reflux disease without esophagitis (9) HTN (hypertension) Current Visit: Yes Status: Chronic Qualifiers: Hypertension type: essential hypertension Qualified Code(s): I10 - Essential (primary) hypertension (10) Sequela, post-stroke Current Visit: Yes Status: Chronic Comment: 2015 weakness of left leg (11) Hypercholesteremia Current Visit: Yes Status: Chronic - Initial Treatment Plan Initial Treatment Plan: Psychoeducation is offered.Rejected by patient.Advised to resume treatment with antidepressant agents : he refuses.Detoxification is in progress.Patient is made aware of risk taken by refusing pharmacotherapy for depression.Recent pharmacy claims are reviewed : noted scripts for abilify + lexapro + trazodone + gabapentin on 01/15/17 @ [facility].These claims are brought to patient's attention and he is encouraged to resume the regimen.Mr Clancy declines.Daily observation.
--- NOTE | 2017-04-06 11:45 | EKG ---
Test Reason : Blood Pressure : / mmHG Vent. Rate : 073 BPM Atrial Rate : 073 BPM P-R Int : 138 ms QRS Dur : 094 ms QT Int : 350 ms P-R-T Axes : 067 074 066 degrees QTc Int : 385 ms NORMAL SINUS RHYTHM NORMAL ECG WHEN COMPARED WITH ECG OF 02-APR-2017 00:53, NO SIGNIFICANT CHANGE WAS FOUND Confirmed by RANDA WILD MD ([id number]) on 04/06/2017 11:45:00 AM Referred By: Confirmed By:RANDA WILD MD
--- NOTE | 2017-04-06 12:27 | PN ---
[facility] Progress Note (SOAP) Subjective: Pt. comes from [facility] to complete detox at [facility] Objective: 04/06/17 12:26 Vital Signs - 8 hr 04/06/17 04/06/17 06:24 10:00 Temperature 97.7 F 97.0 F L Pulse Rate 87 112 H Respiratory 18 16 Rate Blood Pressure 126/76 122/80 Laboratory Results - last 24 hr 04/06/17 04/06/17 04/06/17 07:00 07:00 07:00 WBC 10.9 H RBC 4.48 Hgb 14.7 Hct 42.9 MCV 95.8 MCHC 34.3 RDW 13.9 Plt Count 317 MPV 7.1 L Sodium 138 Potassium 4.7 Chloride 98 Carbon Dioxide 29 Anion Gap 11 BUN 12 D Creatinine 0.6 L Creat Clearance w eGFR > 60 Random Glucose 87 Calcium 9.1 Total Bilirubin 0.2 D AST 13 L ALT 25 Alkaline Phosphatase 97 Total Protein 6.8 Albumin 3.7 RPR Titer Nonreactive labs noted Assessment: 04/06/17 12:26 Withdrawal sx., resolved Plan: Refer to rehab
[2017-04-06 21:27] LABS: URINE APPEARANCE SLCLOUDY; URINE BILIRUBIN NEGATIVE (NEGATIVE); URINE BLOOD NEGATIVE (NEGATIVE); URINE COLOR LTYELLOW; URINE GLUCOSE (UA) NEGATIVE (NEGATIVE); URINE KETONE NEGATIVE (NEGATIVE); URINE LEUK ESTERASE NEGATIVE (NEGATIVE); URINE NITRITE NEGATIVE (NEGATIVE); URINE PROTEIN NEGATIVE (NEGATIVE); URINE UROBILINOGEN NEGATIVE E.U./dl (0.2-1.0)
[2017-04-06] MEDS: THIAMINE HCL 100 MG TABLET (FP) PO SCH (22:10)
[2017-04-07] MEDS: hydrOXYzine PAMOATE 50 MG CAPSULE (FP) PO PRN (06:03)
[2017-04-07 06:31] VITALS: TEMP 97.6
[2017-04-07] MEDS: TAMSULOSIN HCL 0.4 MG CAP.ER.24H (FP) PO SCH (09:24)
[2017-04-07 09:35] VITALS: BP 139/78; PULSE 102
[2017-04-07] MEDS: ASPIRIN/DIPYRIDAMOLE 25 MG/200 MG CAPSULE (FP) PO SCH (10:19)
[2017-04-07] MEDS: RANITIDINE HCL 150 MG TABLET (FP) PO SCH (10:19)
[2017-04-07] MEDS: LOSARTAN POTASSIUM 50 MG TABLET (FP) PO SCH (10:19)
[2017-04-07] MEDS: LIDOCAINE 5% TOPICAL PATCH TP SCH (10:19)
[2017-04-07] MEDS: CYANOCOBALAMIN (VITAMIN B-12) 100 MCG TABLET PO SCH (10:19)
[2017-04-07] MEDS: GABAPENTIN 300 MG CAPSULE (FP) PO SCH (10:19)
[2017-04-07] MEDS: PRENATAL VITAMINS W/ FOLIC ACID TABLET (FP) PO SCH (10:20)
[2017-04-07] MEDS: NICOTINE 21 MG/24 HOURS TOPICAL PATCH TD SCH (10:20)
[2017-04-07] MEDS ORDERED: ARIPiprazole 2 MG TABLET PO SCH (10:45)
[2017-04-07] MEDS ORDERED: ARIPiprazole 5 MG TABLET (FP) PO SCH (10:45)
--- NOTE | 2017-04-07 10:46 | PN ---
[facility] Progress Note Note: Psychiatry Atending's note : Approached by patient. Issue : medications. Mr Clancy requests abilify 5 mg/day. Explains that " it helped me a great deal." Records confirmed previous treatment with abilify. Patient reports good tolerability/efficacy. Side effects/benefits discussed with the patient. Abilify 5 mg po daily.Ordered.
--- NOTE | 2017-04-07 11:26 | DS ---
[facility] Detox Discharge Summary Admission Date: 04/05/17 Discharge Date: 04/07/17 - History Present History: Alcohol Dependence Additional Comments: DETOX COMPLETED. ALERT O X 3. NAD. Pertinent Past History: HTN GERD BPH CVA ANEMIA CAD - Physical Exam Results Vital Signs: Vital Signs Temperature 97.6 F 04/07/17 09:34 Pulse Rate 102 H 04/07/17 09:34 Respiratory Rate 18 04/07/17 09:34 Blood Pressure 139/78 04/07/17 09:34 O2 Sat by Pulse Oximetry (%) Pertinent Admission Physical Exam Findings: WITHDRAWAL SX - Treatment Hospital Course: Detox Protocol Followed, Detoxed Safely, Responded well, Discharged Condition Good, Rehab Referral Accepted Patient has Accepted a Rehab Referral to: [facility] - Medication Discharge Medications: Ambulatory Orders Aspirin/Dipyridamole [Aggrenox -] 2 combo PO BID 04/02/17 Aspirin/Dipyridamole [Aggrenox -] 1 combo PO BID #60 tab 04/05/17 Chlordiazepoxide [Librium -] 10 mg PO [id number] #3 tab MDD needs 3 more doses Cyanocobalamin [Vitamin B12 -] 100 mcg PO DAILY tablet 04/05/17 Folic Acid - 1 mg PO DAILY #0 tablet 04/05/17 Gabapentin [Neurontin -] 300 mg PO BID #60 tab 04/05/17 Losartan Potassium [Cozaar -] 50 mg PO DAILY #0 tablet 04/05/17 Losartan Potassium [Cozaar] 50 mg PO DAILY #30 tablet 04/05/17 Multivitamins [Multivit ([facility] Formulary)] 1 tab PO DAILY tab 04/05/17 Nicotine Patch [Nicoderm Patch -] 21 mg TD DAILY patch 04/05/17 - Diagnosis (1) Alcohol dependence with uncomplicated withdrawal Status: Acute (2) BPH (benign prostatic hyperplasia) Status: Chronic Qualifiers: Prostatic enlargement morphology: non-nodular Lower urinary tract symptom presence: symptoms absent Qualified Code(s): N40.0 - Benign prostatic hyperplasia without lower urinary tract symptoms (3) GERD (gastroesophageal reflux disease) Status: Chronic Qualifiers: Esophagitis presence: without esophagitis Qualified Code(s): K21.9 - Gastro-esophageal reflux disease without esophagitis (4) HTN (hypertension) Status: Chronic Qualifiers: Hypertension type: essential hypertension Qualified Code(s): I10 - Essential (primary) hypertension (5) Hypercholesteremia Status: Chronic (6) CVA (cerebral vascular accident) Status: Chronic Qualifiers: CVA mechanism: unspecified Qualified Code(s): I63.9 - Cerebral infarction, unspecified - AMA Did Patient Leave Against Medical Advice: No
== END 2017-04-07 13:02 | disposition other institution (70) | DRG 775 ==
LOC: YASAS 12:41 → Y3N 18:15
PROVIDERS: ADMIT Internal Medicine; ATTEND Internal Medicine
PROC: HZ2ZZZZ Detoxification Services for Substance Abuse Treatment (ICD-10-PCS; principal; 2017-04-05)
DX: F10.230 Alcohol dependence with withdrawal, uncomplicated (principal); F17.213 Nicotine dependence, cigarettes, with withdrawal; F10.24 Alcohol dependence with alcohol-induced mood disorder; N40.0 Benign prostatic hyperplasia without lower urinary tract symptoms; K21.9 Gastro-esophageal reflux disease without esophagitis; I10 Essential (primary) hypertension; E78.00 Pure hypercholesterolemia, unspecified; I69.359 Hemiplegia and hemiparesis following cerebral infarction affecting unspecified side; F32.9 Major depressive disorder, single episode, unspecified; Z86.79 Personal history of other diseases of the circulatory system; Z87.898 Personal history of other specified conditions; M54.5 Low back pain; Z86.2 Personal history of diseases of the blood and blood-forming organs and certain disorders involving the immune mechanism
CPT/HCPCS: 36415; 80053; 81003; 85027; 86593; 93005; 93010

== ENCOUNTER 2017-04-07 12:56 | Inpatient (IN) | payer OTHER ==
[2017-04-07] MEDS ORDERED: MENTHOL/PHENOL 1 EACH UD MM PRN (15:09)
[2017-04-07] MEDS ORDERED: MAGNESIUM HYDROX 2400MG/30ML ORAL SUSPENSION 30 ML CUP PO PRN (15:09)
[2017-04-07] MEDS ORDERED: MAGNESIUM CITRATE 300 ML BOTTLE PO PRN (15:09)
[2017-04-07] MEDS ORDERED: guaiFENesin/D-METHORPHAN HB 10 ML UNIT-DOSE CUPS PO PRN (15:09)
[2017-04-07] MEDS ORDERED: MAG HYDROX/AL HYDROX/SIMETH 30 ML UNIT-DOSE CUP PO PRN (15:09)
[2017-04-07] MEDS ORDERED: LOPERAMIDE HCL 2 MG CAPSULE PO PRN (15:09)
[2017-04-07] MEDS ORDERED: P-EPHED 60MG/TRIPROLIDI 2.5MG TABLET PO PRN (15:09)
[2017-04-07] MEDS ORDERED: IBUPROFEN 400 MG TABLET (FP) PO PRN (15:09)
--- NOTE | 2017-04-07 16:47 | HP ---
[facility] Rehab Assess/Revision - Admission History Ad[facility] Date of Admission to Rehab: 04/07/17 - Findings Detox History & Physical reviewed: Yes Concur with findings: Yes Comments/Additional Findings: transferred from detox to rehab admission as per protocol
[2017-04-07] MEDS: ACETAMINOPHEN 325 MG TABLET (FP) PO PRN (18:00)
[2017-04-07] MEDS ORDERED: CYCLOBENZAPRINE HCL 10 MG TABLET (FP) PO ONE (21:46)
[2017-04-07] MEDS: THIAMINE HCL 100 MG TABLET (FP) PO SCH (21:55)
[2017-04-07] MEDS: ASPIRIN/DIPYRIDAMOLE 25 MG/200 MG CAPSULE (FP) PO SCH (21:55)
[2017-04-07] MEDS: GABAPENTIN 300 MG CAPSULE (FP) PO SCH (21:56)
[2017-04-07] MEDS: diphenhydrAMINE HCL 50 MG CAPSULE PO PRN (21:56)
[2017-04-07] MEDS: RANITIDINE HCL 150 MG TABLET (FP) PO SCH (21:56)
[2017-04-08] MEDS: diphenhydrAMINE HCL 50 MG CAPSULE PO PRN (01:10)
[2017-04-08] MEDS: TAMSULOSIN HCL 0.4 MG CAP.ER.24H (FP) PO SCH (08:45)
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
[2017-04-08] MEDS: ASPIRIN/DIPYRIDAMOLE 25 MG/200 MG CAPSULE (FP) PO SCH ×2 (10:01→21:25)
[2017-04-08] MEDS: PRENATAL VITAMINS W/ FOLIC ACID TABLET (FP) PO SCH (10:01)
[2017-04-08] MEDS: RANITIDINE HCL 150 MG TABLET (FP) PO SCH ×2 (10:01→21:25)
[2017-04-08] MEDS: LOSARTAN POTASSIUM 50 MG TABLET (FP) PO SCH (10:01)
[2017-04-08] MEDS: GABAPENTIN 300 MG CAPSULE (FP) PO SCH ×2 (10:03→21:25)
[2017-04-08] MEDS: hydrOXYzine PAMOATE 50 MG CAPSULE (FP) PO PRN (10:04)
[2017-04-08] MEDS: NICOTINE 21 MG/24 HOURS TOPICAL PATCH TD SCH (10:05)
[2017-04-08] MEDS: THIAMINE HCL 100 MG TABLET (FP) PO SCH (21:24)
[2017-04-08] MEDS: traZODone HCL 50 MG TABLET (FP) PO SCH (21:24)
[2017-04-08] MEDS ORDERED: PT OWN MED DRAWER 7, Y5N ONE (21:26)
[2017-04-09] MEDS: ACETAMINOPHEN 325 MG TABLET (FP) PO PRN (06:28)
[2017-04-09] MEDS: TAMSULOSIN HCL 0.4 MG CAP.ER.24H (FP) PO SCH (08:20)
[2017-04-09] MEDS ORDERED: PT OWN MED DRAWER 7, Y5N ONE ×2 (08:36→21:32)
[2017-04-09] MEDS: RANITIDINE HCL 150 MG TABLET (FP) PO SCH ×2 (10:12→21:31)
[2017-04-09] MEDS: ASPIRIN/DIPYRIDAMOLE 25 MG/200 MG CAPSULE (FP) PO SCH ×2 (10:12→21:32)
[2017-04-09] MEDS: GABAPENTIN 300 MG CAPSULE (FP) PO SCH ×2 (10:13→21:31)
[2017-04-09] MEDS: NICOTINE 21 MG/24 HOURS TOPICAL PATCH TD SCH (10:13)
[2017-04-09] MEDS: PRENATAL VITAMINS W/ FOLIC ACID TABLET (FP) PO SCH (10:13)
[2017-04-09] MEDS: LOSARTAN POTASSIUM 50 MG TABLET (FP) PO SCH (10:13)
[2017-04-09] MEDS: hydrOXYzine PAMOATE 50 MG CAPSULE (FP) PO PRN (10:15)
[2017-04-09] MEDS: NICOTINE POLACRILEX 4 MG GUM BUC PRN ×3 (10:15→21:32)
--- NOTE | 2017-04-09 13:58 | PN ---
[facility] Progress Note Note: nicotine patch is causing a rash at site of application D/C nicotine patch, give nicotine gum
[2017-04-09] MEDS: THIAMINE HCL 100 MG TABLET (FP) PO SCH (21:31)
[2017-04-09] MEDS: CYCLOBENZAPRINE HCL 10 MG TABLET (FP) PO PRN (21:31)
[2017-04-09] MEDS: traZODone HCL 50 MG TABLET (FP) PO SCH (22:14)
[2017-04-09] MEDS: diphenhydrAMINE HCL 50 MG CAPSULE PO PRN (23:31)
[2017-04-10] MEDS ORDERED: PT OWN MED DRAWER 7, Y5N ONE ×2 (08:32→19:18)
[2017-04-10] MEDS: TAMSULOSIN HCL 0.4 MG CAP.ER.24H (FP) PO SCH (08:37)
[2017-04-10] MEDS: NICOTINE POLACRILEX 4 MG GUM BUC PRN ×2 (08:49→20:07)
[2017-04-10] MEDS: PRENATAL VITAMINS W/ FOLIC ACID TABLET (FP) PO SCH (09:37)
[2017-04-10] MEDS: ASPIRIN/DIPYRIDAMOLE 25 MG/200 MG CAPSULE (FP) PO SCH ×2 (09:38→21:36)
[2017-04-10] MEDS: RANITIDINE HCL 150 MG TABLET (FP) PO SCH ×2 (09:38→21:34)
[2017-04-10] MEDS: GABAPENTIN 300 MG CAPSULE (FP) PO SCH ×2 (09:38→21:35)
[2017-04-10] MEDS: LOSARTAN POTASSIUM 50 MG TABLET (FP) PO SCH (09:38)
[2017-04-10] MEDS: CYCLOBENZAPRINE HCL 10 MG TABLET (FP) PO PRN ×2 (12:49→21:35)
[2017-04-10] MEDS: THIAMINE HCL 100 MG TABLET (FP) PO SCH (21:34)
[2017-04-10] MEDS: traZODone HCL 50 MG TABLET (FP) PO SCH (21:35)
[2017-04-10] MEDS: diphenhydrAMINE HCL 50 MG CAPSULE PO PRN (23:53)
[2017-04-11] MEDS: NICOTINE POLACRILEX 4 MG GUM BUC PRN ×3 (07:25→20:16)
[2017-04-11] MEDS: TAMSULOSIN HCL 0.4 MG CAP.ER.24H (FP) PO SCH (09:30)
[2017-04-11] MEDS: RANITIDINE HCL 150 MG TABLET (FP) PO SCH ×2 (09:34→21:19)
[2017-04-11] MEDS: PRENATAL VITAMINS W/ FOLIC ACID TABLET (FP) PO SCH (09:34)
[2017-04-11] MEDS: ASPIRIN/DIPYRIDAMOLE 25 MG/200 MG CAPSULE (FP) PO SCH ×2 (09:34→21:18)
[2017-04-11] MEDS: LOSARTAN POTASSIUM 50 MG TABLET (FP) PO SCH (09:34)
[2017-04-11] MEDS: GABAPENTIN 300 MG CAPSULE (FP) PO SCH ×2 (09:34→21:18)
[2017-04-11] MEDS ORDERED: PT OWN MED DRAWER 7, Y5N ONE (19:26)
[2017-04-11] MEDS: THIAMINE HCL 100 MG TABLET (FP) PO SCH (21:18)
[2017-04-11] MEDS: CYCLOBENZAPRINE HCL 10 MG TABLET (FP) PO PRN (21:18)
[2017-04-11] MEDS: diphenhydrAMINE HCL 50 MG CAPSULE PO PRN ×2 (21:18→22:21)
[2017-04-11] MEDS: traZODone HCL 50 MG TABLET (FP) PO SCH (21:20)
[2017-04-12] MEDS: NICOTINE POLACRILEX 4 MG GUM BUC PRN ×4 (06:14→17:46)
[2017-04-12] MEDS ORDERED: PT OWN MED DRAWER 7, Y5N ONE ×2 (08:27→21:41)
[2017-04-12] MEDS: TAMSULOSIN HCL 0.4 MG CAP.ER.24H (FP) PO SCH (08:39)
[2017-04-12] MEDS: RANITIDINE HCL 150 MG TABLET (FP) PO SCH ×2 (09:39→21:14)
[2017-04-12] MEDS: ASPIRIN/DIPYRIDAMOLE 25 MG/200 MG CAPSULE (FP) PO SCH ×2 (09:39→21:14)
[2017-04-12] MEDS: LOSARTAN POTASSIUM 50 MG TABLET (FP) PO SCH (09:39)
[2017-04-12] MEDS: GABAPENTIN 300 MG CAPSULE (FP) PO SCH ×2 (09:39→21:14)
[2017-04-12] MEDS: PRENATAL VITAMINS W/ FOLIC ACID TABLET (FP) PO SCH (09:40)
[2017-04-12] MEDS: diphenhydrAMINE HCL 50 MG CAPSULE PO PRN ×2 (21:14→22:16)
[2017-04-12] MEDS: THIAMINE HCL 100 MG TABLET (FP) PO SCH (21:14)
[2017-04-12] MEDS: CYCLOBENZAPRINE HCL 10 MG TABLET (FP) PO PRN (21:14)
[2017-04-12] MEDS: traZODone HCL 50 MG TABLET (FP) PO SCH (21:15)
[2017-04-13] MEDS: NICOTINE POLACRILEX 4 MG GUM BUC PRN ×5 (06:32→23:01)
[2017-04-13] MEDS: TAMSULOSIN HCL 0.4 MG CAP.ER.24H (FP) PO SCH (09:22)
[2017-04-13] MEDS: PRENATAL VITAMINS W/ FOLIC ACID TABLET (FP) PO SCH (09:22)
[2017-04-13] MEDS: GABAPENTIN 300 MG CAPSULE (FP) PO SCH ×2 (09:22→21:26)
[2017-04-13] MEDS: LOSARTAN POTASSIUM 50 MG TABLET (FP) PO SCH (09:22)
[2017-04-13] MEDS: ASPIRIN/DIPYRIDAMOLE 25 MG/200 MG CAPSULE (FP) PO SCH ×2 (09:22→21:27)
[2017-04-13] MEDS: RANITIDINE HCL 150 MG TABLET (FP) PO SCH ×2 (09:22→21:26)
[2017-04-13] MEDS: CYCLOBENZAPRINE HCL 10 MG TABLET (FP) PO PRN ×2 (09:23→21:26)
[2017-04-13] MEDS ORDERED: HYDROCORTISONE 1% TOPICAL CREAM 30 GM TUBE TP PRN (13:22)
--- NOTE | 2017-04-13 16:02 | PN ---
Psychiatric Progress Note Vital Signs: Vital Signs Period Temp Pulse Resp BP Sys/Phelps Pulse Ox Last 24 Hr 98.6 F 95-102 16-18 132-150/78-79 Date of Session: 04/13/17 Chief Complaint:: Discharge visit HPI: Case of a 56 y/o male,admitted to [address] for rehabilitation for alcohol dependence and who decided,after seven days of treatment to leave the program.Patient is given encouragement to stay in treatment but he declines to reconsider. ROS: Unremarkable.Patient is ambulatory,visible on the unit,sociable and well controlled.No somatic complaints offered.Comfortable.Steady gait. Current Medications: Active Medications Generic Name Dose Route Start Last Admin Trade Name Freq PRN Reason Stop Dose Admin Acetaminophen 650 mg 04/07/17 15:09 04/09/17 06:28 Tylenol - PO 650 mg Q4H PRN Administration FEVER OR PAIN Al Hydroxide/Mg Hydroxide 30 ml 04/07/17 15:09 Mylanta Oral Suspension - PO Q6H PRN DYSPEPSIA Cyclobenzaprine HCl 10 mg 04/09/17 13:42 04/13/17 09:23 Flexeril - PO 10 mg TID PRN Administration MUSCLE SPASMS Diphenhydramine HCl 50 mg 04/07/17 15:09 04/12/17 22:16 Benadryl - PO 50 mg HSMR1 PRN Administration FOR ITCHING Dipyridamole/Aspirin 1 combo 04/07/17 22:00 04/13/17 09:22 Aggrenox - PO 1 combo BID ZORAIDA Administration Eucalyptus/Menthol/Phenol/Sorbitol 1 each 04/07/17 15:09 Cepastat Lozenge - MM Q4H PRN SORE THROAT Gabapentin 300 mg 04/07/17 22:00 04/13/17 09:22 Neurontin - PO 300 mg BID ZORAIDA Administration Guaifenesin 10 ml 04/07/17 15:09 Robitussin Dm - PO Q6H PRN COUGH Hydrocortisone 1 applic 04/13/17 13:22 Hytone 1% Cream - TP BID PRN DRY SKIN Hydroxyzine Pamoate 50 mg 04/08/17 09:55 04/09/17 10:15 Vistaril - PO 50 mg Q4H PRN Administration ANXIETY Ibuprofen 400 mg 04/07/17 15:09 Motrin - PO Q6H PRN PAIN Loperamide HCl 4 mg 04/07/17 15:09 Imodium - PO Q6H PRN DIARRHEA Losartan Potassium 50 mg 04/08/17 10:00 04/13/17 09:22 Cozaar - PO 50 mg DAILY ZORAIDA Administration Magnesium Hydroxide 30 ml 04/07/17 15:09 Milk Of Magnesia - PO DAILY PRN CONSTIPATION Nicotine Polacrilex 4 mg 04/07/17 15:09 04/13/17 12:40 Nicorette Gum - BUC 4 mg Q2H PRN Administration NICOTINE REPLACEMENT RX Multivit/Folic Acid/Iron 1 tab 04/08/17 10:00 04/13/17 09:22 Vitamins (Sjr) - PO 1 tab DAILY ZORAIDA Administration Pseudoephedrine/Triprolidine 1 combo 04/07/17 15:09 Actifed - PO TID PRN NASAL CONGESTION Ranitidine HCl 150 mg 04/07/17 22:00 04/13/17 09:22 Zantac - PO 150 mg BID ZORAIDA Administration Tamsulosin HCl 0.4 mg 04/08/17 08:30 04/13/17 09:22 Flomax - PO 0.4 mg DAILY@0830 ZORAIDA Administration Thiamine HCl 100 mg 04/07/17 22:00 04/12/17 21:14 Vitamin B1 - PO 100 mg HS ZORAIDA Administration Trazodone HCl 75 mg 04/08/17 22:00 04/12/17 21:15 Desyrel - PO Not Given HS ZORAIDA Medication(s) Change(s): Patient is offered scripts for trazodone and vistaril.He declines to continue on psychotropic medications. Current Side Effect: No Lab tests ordered: No Lab tests reviewed: Yes Provider note:: Patient will be discharged on 04/14/17.He has decided to leave this program.Mr Clancy indicates that he has addressed his issues and met his short term treatment goals.He wants to continue to address his issues in an outpatient setting at the [facility].Patient reports improvement in various domains (sleep,appetite,quality of mood,energy level and self-esteem).He recognizes the benefits of sobriety and he pledges to make a genuine effort to avoid triggers that predispose to relapses.Medical issues were addressed.Patient is active,sociable and shows no evidence of distress.He states that he will keep his appointments for aftercare (medical and psychiatric),attend AA meetings and enlist all the supports available for maintenance of wellness.He plans to keep his affiliation with the [facility] for his medical follow up.He insists that he is currently domiciled with home administrator services on a weekly basis.Mental status is stable.See report.Mr Clancy is at his baseline.He is stable for discharge. Total face to face time:: 35 Mental Status Exam - Mental Status Exam Alert and Oriented to: Time, Place, Person Cognitive Function: Good Patient Appearance: Well Groomed Mood: Hopeful, Euthymic Affect: Appropriate, Normal Range Patient Behavior: Appropriate, Cooperative Speech Pattern: Clear Voice Loudness: Normal Thought Process: Goal Oriented Thought Disorder: Not Present Hallucinations: Denies Suicidal Ideation: Denies Insight/Judgement: Fair Sleep: Well Appetite: Good Gait/Station: Normal (patient has a cane for ambulation.) Psychiatric Treatment Plan - Problem List (1) Alcohol dependence Current Visit: Yes (2) Nicotine dependence Current Visit: Yes Qualifiers: Nicotine product type: cigarettes Substance use status: in withdrawal Qualified Code(s): F17.213 - Nicotine dependence, cigarettes, with withdrawal (3) CVA (cerebral vascular accident) Current Visit: No Qualifiers: CVA mechanism: unspecified Qualified Code(s): I63.9 - Cerebral infarction, unspecified (4) Chronic lower back pain Current Visit: Yes Qualifiers: Back pain laterality: left Sciatica laterality: sciatica of left side (5) GERD (gastroesophageal reflux disease) Current Visit: Yes Qualifiers: Esophagitis presence: without esophagitis Qualified Code(s): K21.9 - Gastro-esophageal reflux disease without esophagitis (6) HTN (hypertension) Current Visit: Yes Qualifiers: Hypertension type: essential hypertension Qualified Code(s): I10 - Essential (primary) hypertension (7) Hypercholesteremia Current Visit: Yes (8) [place], post-stroke Current Visit: Yes Comment: 2014 weakness of left leg (9) Weight loss Current Visit: Yes
[2017-04-13] MEDS: diphenhydrAMINE HCL 50 MG CAPSULE PO PRN ×2 (21:26→23:00)
[2017-04-13] MEDS: THIAMINE HCL 100 MG TABLET (FP) PO SCH (21:26)
[2017-04-13] MEDS ORDERED: PT OWN MED DRAWER 7, Y5N ONE (21:27)
[2017-04-13] MEDS: traZODone HCL 50 MG TABLET (FP) PO SCH (21:27)
[2017-04-14] MEDS: NICOTINE POLACRILEX 4 MG GUM BUC PRN ×3 (06:11→09:38)
[2017-04-14 07:01] VITALS: BP 145/81; PULSE 102; TEMP 98.4
[2017-04-14] MEDS ORDERED: PT OWN MED DRAWER 7, Y5N ONE (08:54)
[2017-04-14] MEDS: PRENATAL VITAMINS W/ FOLIC ACID TABLET (FP) PO SCH (09:35)
[2017-04-14] MEDS: RANITIDINE HCL 150 MG TABLET (FP) PO SCH (09:36)
[2017-04-14] MEDS: GABAPENTIN 300 MG CAPSULE (FP) PO SCH (09:36)
[2017-04-14] MEDS: TAMSULOSIN HCL 0.4 MG CAP.ER.24H (FP) PO SCH (09:36)
[2017-04-14] MEDS: LOSARTAN POTASSIUM 50 MG TABLET (FP) PO SCH (09:36)
[2017-04-14] MEDS: ASPIRIN/DIPYRIDAMOLE 25 MG/200 MG CAPSULE (FP) PO SCH (09:36)
== END 2017-04-14 09:53 | disposition home or self-care (01) | DRG 772 ==
LOC: YASAS 12:56 → Y3W 12:58
PROVIDERS: ADMIT Psychiatry & Neurology Psychiatry; ATTEND Psychiatry & Neurology Psychiatry
PROC: HZ42ZZZ Group Counseling for Substance Abuse Treatment, Cognitive-Behavioral (ICD-10-PCS; principal; 2017-04-14)
DX: F10.20 Alcohol dependence, uncomplicated (principal); F17.213 Nicotine dependence, cigarettes, with withdrawal; I10 Essential (primary) hypertension; K21.9 Gastro-esophageal reflux disease without esophagitis; J44.9 Chronic obstructive pulmonary disease, unspecified; M54.42 Lumbago with sciatica, left side; N40.0 Benign prostatic hyperplasia without lower urinary tract symptoms; E78.00 Pure hypercholesterolemia, unspecified; I69.854 Hemiplegia and hemiparesis following other cerebrovascular disease affecting left non-dominant side; R63.4 Abnormal weight loss; Z68.22 Body mass index [BMI] 22.0-22.9, adult

== ENCOUNTER 2023-02-01 15:36 | Inpatient (IN) | payer OTHER ==
[2023-02-01 16:58] VITALS: BMI 18.6
[2023-02-01] MEDS ORDERED: chlordiazePOXIDE HCL 25 MG CAPSULE PO PRN (19:38)
[2023-02-01] MEDS ORDERED: NALOXONE HCL 0.4 MG/ML VIAL IM PRN (19:38)
[2023-02-01] MEDS ORDERED: ONDANSETRON *ODT* 4 MG TABLET SL PRN (19:38)
[2023-02-01] MEDS ORDERED: MAGNESIUM HYDROX 2400MG/30ML ORAL SUSPENSION 30 ML CUP PO PRN (19:38)
[2023-02-01] MEDS ORDERED: ACETAMINOPHEN 325 MG TABLET (FP) PO PRN (19:38)
[2023-02-01] MEDS ORDERED: POLYETHYLENE GLYCOL (HEALTHYLAX) 3350 17 GM PACKET PO PRN (19:38)
[2023-02-01] MEDS ORDERED: DICYCLOMINE HCL 10 MG CAPSULE PO PRN (19:38)
[2023-02-01] MEDS ORDERED: MAG HYDROX/AL HYDROX/SIMETH 30 ML UNIT-DOSE CUP PO PRN (19:38)
[2023-02-01] MEDS ORDERED: METHOCARBAMOL 500 MG TABLET PO PRN (19:38)
[2023-02-01] MEDS ORDERED: BENZOCAINE/MENTHOL (CHLORASEPTIC ) LOZENGE MM PRN (19:38)
[2023-02-01] MEDS ORDERED: IBUPROFEN 400 MG TABLET (FP) PO PRN (19:38)
[2023-02-01] MEDS ORDERED: BENZONATATE 200 MG CAPSULE PO PRN (19:38)
[2023-02-01] MEDS ORDERED: LOPERAMIDE HCL 2 MG CAPSULE PO PRN (19:38)
[2023-02-01] MEDS ORDERED: IBUPROFEN 600 MG TABLET (FP) PO PRN (19:38)
[2023-02-01] MEDS ORDERED: guaiFENesin 600 MG TABLET.ER (FP) PO PRN (19:38)
[2023-02-01] MEDS ORDERED: NALOXONE HCL (KLOXXADO) 8 MG SPRAY NS PRN (19:38)
[2023-02-01] MEDS ORDERED: hydrOXYzine PAMOATE 25 MG CAPSULE (FP) PO PRN (19:38)
[2023-02-01] MEDS ORDERED: BISMUTH SUBSALICYLATE 524 MG/30 ML PO PRN (19:38)
[2023-02-01] MEDS: chlordiazePOXIDE HCL 25 MG CAPSULE PO SCH (22:17)
[2023-02-01] MEDS: MELATONIN 5 MG TABLETS PO SCH (22:18)
[2023-02-01] MEDS: FAMOTIDINE 20 MG TABLET PO SCH (22:18)
[2023-02-01] MEDS: NICOTINE 10 MG CARTRIDGE (INHALER) IH PRN (22:18)
[2023-02-01] MEDS: THIAMINE HCL 100 MG TABLET (FP) PO SCH (22:18)
[2023-02-02] MEDS: chlordiazePOXIDE HCL 25 MG CAPSULE PO SCH ×4 (05:28→22:05)
[2023-02-02] MEDS: FAMOTIDINE 20 MG TABLET PO SCH ×2 (10:23→22:05)
[2023-02-02] MEDS: PRENATAL VITAMINS W/ FOLIC ACID TABLET (FP) PO SCH (10:23)
[2023-02-02 12:31] LABS: HEMATOCRIT 37.6 % (35.4-49); HEMOGLOBIN 13.2 GM/dL (11.7-16.9); MCH 33.2 pg (25.7-33.7); MCHC 35.1 g/dl (32.0-35.9); MEAN CELL VOLUME 94.8 fl (80-96); PLATELET COUNT 182 10^3/uL (134-434); RBC 3.96 M/mm3 (4.00-5.60); RDW 13.9 % (11.9-15.9); WHITE BLOOD COUNT 5.4 K/mm3 (4.0-10.0)
[2023-02-02 12:37] LABS: CALCIUM 8.7 mg/dL (8.5-10.1)
[2023-02-02 12:38] LABS: ALBUMIN 3.3 g/dl (3.4-5.0)
[2023-02-02 12:41] LABS: CREATININE 0.6 mg/dL (0.55-1.3)
[2023-02-02 12:42] LABS: BILIRUBIN,TOTAL 1.4 mg/dL (0.2-1); TOT PROT 6.2 g/dl (6.4-8.2)
[2023-02-02] MEDS: THIAMINE HCL 100 MG TABLET (FP) PO SCH (22:05)
[2023-02-02] MEDS: MELATONIN 5 MG TABLETS PO SCH (22:05)
[2023-02-03] MEDS ORDERED: chlordiazePOXIDE HCL 25 MG CAPSULE PO SCH (05:00)
[2023-02-03] MEDS ORDERED: LORazepam 1 MG TABLET PO PRN (08:23)
[2023-02-03] MEDS: PRENATAL VITAMINS W/ FOLIC ACID TABLET (FP) PO SCH (10:26)
[2023-02-03] MEDS: LORazepam 2 MG TABLET PO SCH ×3 (10:26→22:17)
[2023-02-03] MEDS: FAMOTIDINE 20 MG TABLET PO SCH ×2 (10:26→22:17)
[2023-02-03] MEDS: THIAMINE HCL 100 MG TABLET (FP) PO SCH (22:17)
[2023-02-03] MEDS: MELATONIN 5 MG TABLETS PO SCH (22:17)
[2023-02-04] MEDS ORDERED: chlordiazePOXIDE HCL 10 MG CAPSULE PO PRN
[2023-02-04] MEDS ORDERED: LORazepam 0.5 MG TABLET PO PRN
[2023-02-04] MEDS ORDERED: chlordiazePOXIDE HCL 10 MG CAPSULE PO SCH (05:00)
[2023-02-04] MEDS: LORazepam 1 MG TABLET PO SCH ×4 (05:19→22:16)
[2023-02-04] MEDS: FAMOTIDINE 20 MG TABLET PO SCH ×2 (10:28→22:16)
[2023-02-04] MEDS: PRENATAL VITAMINS W/ FOLIC ACID TABLET (FP) PO SCH (10:28)
[2023-02-04 11:15] LABS: ALBUMIN 2.9 g/dl (3.4-5.0); CALCIUM 8.4 mg/dL (8.5-10.1)
[2023-02-04 11:18] LABS: CREATININE 0.5 mg/dL (0.55-1.3)
[2023-02-04 11:19] LABS: BILIRUBIN,TOTAL 0.3 mg/dL (0.2-1); TOT PROT 5.6 g/dl (6.4-8.2)
[2023-02-04] MEDS ORDERED: NICOTINE POLACRILEX 2 MG GUM BC PRN (13:39)
[2023-02-04] MEDS: NICOTINE 10 MG CARTRIDGE (INHALER) IH PRN (17:27)
[2023-02-04] MEDS: THIAMINE HCL 100 MG TABLET (FP) PO SCH (22:16)
[2023-02-04] MEDS: MELATONIN 5 MG TABLETS PO SCH (22:16)
[2023-02-05] MEDS ORDERED: chlordiazePOXIDE HCL 10 MG CAPSULE PO SCH (05:00)
[2023-02-05] MEDS: LORazepam 0.5 MG TABLET PO SCH ×2 (05:44→10:30)
[2023-02-05 09:20] VITALS: BP 107/60; PULSE 96; RESP 17; TEMP 97.5
[2023-02-05] MEDS: FAMOTIDINE 20 MG TABLET PO SCH (10:30)
[2023-02-05] MEDS: PRENATAL VITAMINS W/ FOLIC ACID TABLET (FP) PO SCH (10:30)
[2023-02-06] MEDS ORDERED: chlordiazePOXIDE HCL 10 MG CAPSULE PO ONE (05:00)
== END 2023-02-05 11:12 | disposition home or self-care (01) | DRG 775 ==
LOC: YASAS 15:36 → Y3N 20:45
PROVIDERS: ADMIT Allergy & Immunology; ATTEND Surgery
PROC: HZ2ZZZZ Detoxification Services for Substance Abuse Treatment (ICD-10-PCS; principal; 2023-02-01)
DX: F10.230 Alcohol dependence with withdrawal, uncomplicated (principal); F17.210 Nicotine dependence, cigarettes, uncomplicated; F41.9 Anxiety disorder, unspecified; E78.5 Hyperlipidemia, unspecified; I10 Essential (primary) hypertension; J44.9 Chronic obstructive pulmonary disease, unspecified; K21.9 Gastro-esophageal reflux disease without esophagitis; R79.89 Other specified abnormal findings of blood chemistry
CPT/HCPCS: 36415; 80053; 82140; 83036; 85027; 86780; C9803-CS; U0003; U0005

== ENCOUNTER 2023-03-15 12:49 | Inpatient (IN) | payer OTHER ==
[2023-03-15 13:10] VITALS: BMI 18.1
[2023-03-15] MEDS ORDERED: MAGNESIUM HYDROX 2400MG/30ML ORAL SUSPENSION 30 ML CUP PO PRN (16:42)
[2023-03-15] MEDS ORDERED: NICOTINE 10 MG CARTRIDGE (INHALER) IH PRN (16:42)
[2023-03-15] MEDS ORDERED: ACETAMINOPHEN 325 MG TABLET (FP) PO PRN (16:42)
[2023-03-15] MEDS ORDERED: IBUPROFEN 600 MG TABLET (FP) PO PRN (16:42)
[2023-03-15] MEDS ORDERED: IBUPROFEN 400 MG TABLET (FP) PO PRN (16:42)
[2023-03-15] MEDS ORDERED: POLYETHYLENE GLYCOL (HEALTHYLAX) 3350 17 GM PACKET PO PRN (16:42)
[2023-03-15] MEDS ORDERED: guaiFENesin 600 MG TABLET.ER (FP) PO PRN (16:42)
[2023-03-15] MEDS ORDERED: BENZOCAINE/MENTHOL (CHLORASEPTIC ) LOZENGE MM PRN (16:42)
[2023-03-15] MEDS ORDERED: COLLOIDAL OATMEAL 1 BAR EACH TP PRN (16:42)
[2023-03-15] MEDS ORDERED: NALOXONE HCL 0.4 MG/ML VIAL IM PRN (16:42)
[2023-03-15] MEDS ORDERED: NALOXONE HCL (KLOXXADO) 8 MG SPRAY NS PRN (16:42)
[2023-03-15] MEDS ORDERED: LOPERAMIDE HCL 2 MG CAPSULE PO PRN (16:42)
[2023-03-15] MEDS ORDERED: AMMONIUM LACTATE 12% LOTION 225 GM BOTTLE TP PRN (16:42)
[2023-03-15] MEDS ORDERED: BISMUTH SUBSALICYLATE 524 MG/30 ML PO PRN (16:42)
[2023-03-15] MEDS ORDERED: BENZONATATE 200 MG CAPSULE PO PRN (16:42)
[2023-03-15] MEDS: LORazepam 2 MG TABLET PO SCH ×2 (17:19→22:22)
[2023-03-15] MEDS ORDERED: LORazepam 2 MG TABLET ONE (17:20)
[2023-03-15] MEDS: LOSARTAN POTASSIUM 50 MG TABLET PO SCH (17:55)
[2023-03-15] MEDS: MAG HYDROX/AL HYDROX/SIMETH 30 ML UNIT-DOSE CUP PO PRN (17:56)
[2023-03-15] MEDS: NICOTINE POLACRILEX 4 MG GUM BUC PRN (17:58)
[2023-03-15] MEDS: FAMOTIDINE 20 MG TABLET PO SCH (22:22)
[2023-03-15] MEDS: THIAMINE HCL 100 MG TABLET (FP) PO SCH (22:22)
[2023-03-15] MEDS: MELATONIN 5 MG TABLETS PO SCH (22:22)
[2023-03-16] MEDS: METHOCARBAMOL 500 MG TABLET PO PRN (05:17)
[2023-03-16] MEDS: LORazepam 2 MG TABLET PO SCH ×4 (05:17→22:12)
[2023-03-16] MEDS: NICOTINE POLACRILEX 4 MG GUM BUC PRN ×4 (05:19→22:14)
[2023-03-16] MEDS: TAMSULOSIN HCL 0.4 MG CAP PO SCH (09:25)
[2023-03-16] MEDS ORDERED: FOLIC ACID 1 MG TABLET (FP) PO SCH (10:00)
[2023-03-16] MEDS: PRENATAL VITAMINS W/ FOLIC ACID TABLET (FP) PO SCH (10:10)
[2023-03-16] MEDS: FAMOTIDINE 20 MG TABLET PO SCH ×2 (10:10→22:12)
[2023-03-16] MEDS: LOSARTAN POTASSIUM 50 MG TABLET PO SCH (10:10)
[2023-03-16] MEDS: MAG HYDROX/AL HYDROX/SIMETH 30 ML UNIT-DOSE CUP PO PRN (10:11)
[2023-03-16 10:54] LABS: HEMATOCRIT 41.6 % (35.4-49); HEMOGLOBIN 14.5 GM/dL (11.7-16.9); MCH 33.5 pg (25.7-33.7); MCHC 34.8 g/dl (32.0-35.9); MEAN CELL VOLUME 96.2 fl (80-96); MEAN PLT VOLUME 7.5 fl (7.5-11.1); PLATELET COUNT 270 10^3/uL (134-434); RBC 4.32 M/mm3 (4.00-5.60); RDW 14.4 % (11.9-15.9); WHITE BLOOD COUNT 5.5 K/mm3 (4.0-10.0)
[2023-03-16 10:55] LABS: POTASSIUM 4.2 mmol/L (3.5-5.1)
[2023-03-16 11:05] LABS: ALBUMIN 3.6 g/dl (3.4-5.0); BLOOD UREA NITROGEN 5.7 mg/dL (7-18); CALCIUM 9.2 mg/dL (8.5-10.1)
[2023-03-16 11:08] LABS: CREATININE 0.7 mg/dL (0.55-1.3)
[2023-03-16 11:09] LABS: BILIRUBIN,TOTAL 1.4 mg/dL (0.2-1); TOT PROT 6.6 g/dl (6.4-8.2)
[2023-03-16] MEDS: DICYCLOMINE HCL 10 MG CAPSULE PO PRN (12:59)
[2023-03-16] MEDS: MELATONIN 5 MG TABLETS PO SCH (22:12)
[2023-03-16] MEDS: THIAMINE HCL 100 MG TABLET (FP) PO SCH (22:12)
[2023-03-17] MEDS: LORazepam 1 MG TABLET PO SCH ×4 (05:20→22:25)
[2023-03-17] MEDS: METHOCARBAMOL 500 MG TABLET PO PRN ×2 (05:22→14:55)
[2023-03-17] MEDS: NICOTINE POLACRILEX 4 MG GUM BUC PRN ×3 (05:47→15:35)
[2023-03-17] MEDS: TAMSULOSIN HCL 0.4 MG CAP PO SCH ×2 (09:17→09:25)
[2023-03-17] MEDS: FAMOTIDINE 20 MG TABLET PO SCH ×2 (10:09→22:23)
[2023-03-17] MEDS: PRENATAL VITAMINS W/ FOLIC ACID TABLET (FP) PO SCH (10:09)
[2023-03-17] MEDS: LOSARTAN POTASSIUM 50 MG TABLET PO SCH (10:09)
[2023-03-17] MEDS: ONDANSETRON *ODT* 4 MG TABLET SL PRN ×2 (10:12→17:33)
[2023-03-17] MEDS: NICOTINE 14 MG/24 HOURS TOPICAL PATCH TD SCH (11:37)
[2023-03-17] MEDS: THIAMINE HCL 100 MG TABLET (FP) PO SCH (22:23)
[2023-03-17] MEDS: MELATONIN 5 MG TABLETS PO SCH (22:24)
[2023-03-18] MEDS: LORazepam 0.5 MG TABLET PO SCH ×4 (05:44→22:13)
[2023-03-18] MEDS: DICYCLOMINE HCL 10 MG CAPSULE PO PRN (05:58)
[2023-03-18] MEDS: TAMSULOSIN HCL 0.4 MG CAP PO SCH (08:47)
[2023-03-18] MEDS: NICOTINE POLACRILEX 4 MG GUM BUC PRN ×3 (08:48→17:24)
[2023-03-18] MEDS: FAMOTIDINE 20 MG TABLET PO SCH ×2 (10:07→22:13)
[2023-03-18] MEDS: LOSARTAN POTASSIUM 50 MG TABLET PO SCH (10:07)
[2023-03-18] MEDS: PRENATAL VITAMINS W/ FOLIC ACID TABLET (FP) PO SCH (10:07)
[2023-03-18] MEDS: METHOCARBAMOL 500 MG TABLET PO PRN ×2 (10:07→17:21)
[2023-03-18] MEDS: NICOTINE 14 MG/24 HOURS TOPICAL PATCH TD SCH (10:08)
[2023-03-18 17:16] VITALS: RESP 18
[2023-03-18] MEDS: THIAMINE HCL 100 MG TABLET (FP) PO SCH (22:13)
[2023-03-18] MEDS: MELATONIN 5 MG TABLETS PO SCH (22:13)
[2023-03-19] MEDS ORDERED: LORazepam 0.5 MG TABLET PO ONE (05:00)
[2023-03-19] MEDS: NICOTINE POLACRILEX 4 MG GUM BUC PRN (07:23)
[2023-03-19] MEDS: TAMSULOSIN HCL 0.4 MG CAP PO SCH (09:14)
[2023-03-19] MEDS: PRENATAL VITAMINS W/ FOLIC ACID TABLET (FP) PO SCH (09:38)
[2023-03-19] MEDS: FAMOTIDINE 20 MG TABLET PO SCH (09:38)
[2023-03-19] MEDS: LOSARTAN POTASSIUM 50 MG TABLET PO SCH (09:38)
[2023-03-19] MEDS: NICOTINE 14 MG/24 HOURS TOPICAL PATCH TD SCH (09:38)
[2023-03-19 09:55] VITALS: BP 140/78; PULSE 100; TEMP 97.4
== END 2023-03-19 09:45 | disposition home or self-care (01) | DRG 775 ==
LOC: YASAS 12:49 → Y6N 17:25
PROVIDERS: ADMIT Allergy & Immunology; ATTEND Allergy & Immunology
PROC: HZ2ZZZZ Detoxification Services for Substance Abuse Treatment (ICD-10-PCS; principal; 2023-03-15)
DX: F10.230 Alcohol dependence with withdrawal, uncomplicated (principal); F12.10 Cannabis abuse, uncomplicated; F17.210 Nicotine dependence, cigarettes, uncomplicated; F10.280 Alcohol dependence with alcohol-induced anxiety disorder; F41.8 Other specified anxiety disorders; E78.5 Hyperlipidemia, unspecified; J41.0 Simple chronic bronchitis; K21.9 Gastro-esophageal reflux disease without esophagitis; M54.50 Low back pain, unspecified; G89.29 Other chronic pain; N40.0 Benign prostatic hyperplasia without lower urinary tract symptoms; Z86.73 Personal history of transient ischemic attack (TIA), and cerebral infarction without residual deficits
CPT/HCPCS: 36415; 80053; 85027; 86780; 87811; C9803-CS; Q0162; U0003; U0005